=== PATIENT | male | born 1955 | race Caucasian/White ===

== ENCOUNTER 2018-04-02 17:02 | Inpatient (IN) | payer BC ==
[2018-04-02] MEDS ORDERED: Acetaminophen 500 MG Tab PO ONE (18:00)
[2018-04-02] MEDS ORDERED: Sodium Chloride 0.9% 1,000 ML IV ONE (18:00)
[2018-04-02] MEDS ORDERED: Sodium Chloride 0.9% 10 ML Syringe FLUSH PRN ×2 (18:00→20:57)
--- NOTE | 2018-04-02 18:00 | EDM.PDOC ---
ED HPI GENERAL MEDICAL PROBLEM - General Chief Complaint: Fever Stated Complaint: SHORTNESS OF BREATH Time Seen by Provider: 04/02/18 17:45 Source of Information: Reports: Patient, Family History Limitations: Reports: No Limitations - History of Present Illness INITIAL COMMENTS - FREE TEXT/NARRATIVE: Nicolas presents today for complaints of fever and SOB since this morning. He reports his fever was up to 101. He reports hemoptysis since this am. 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 Last took levaquin for 7 days which he started on March 17. History of hospitalization for sepsis. Lower Back Pain Score (Numeric/FACES): 7 - Related Data Allergies Allergy/AdvReac Type Severity Reaction Status Date / Time No Known Allergies Allergy Verified 04/02/18 17:08 Home Meds: Home Meds ALPRAZolam [Xanax] 3 - 5 tab PO ASDIRECTED PRN 04/02/18 [History] Bimatoprost [LUMIGAN 0.01% Ophth Soln] 1 drop EYEBOTH BEDTIME 04/02/18 [History] Citalopram [Citalopram HBr] 40 mg PO DAILY 04/02/18 [History] Fluticasone/Salmeterol [Advair 250-50 Diskus] 1 puff IN BID 04/02/18 [History] Furosemide [Lasix] 40 mg PO DAILY 04/02/18 [History] Tiotropium [Spiriva HandiHaler] 1 dose IN DAILY 04/02/18 [History] Warfarin Dosing [Coumadin Ask] 5 mg PO DAILY 04/02/18 [History] Zolpidem Tartrate [Ambien] 5 mg PO BEDTIME PRN 04/02/18 [History] amLODIPine [Norvasc] 5 mg PO DAILY 04/02/18 [History] amLODIPine [Norvasc] 5 mg PO DAILY 04/02/18 [History] oxyCODONE ER [OxyCONTIN] 20 mg PO Q8H 04/02/18 [History] Past Medical History Cardiovascular History: Reports: MT Respiratory History: Reports: COPD Musculoskeletal History: Reports: Back Pain, Chronic Social & Family History - Tobacco Use Smoking Status *Q: Never Smoker ED ROS GENERAL - Review of Systems Review Of Systems: See Below Constitutional: Reports: Fever, Chills, Malaise, Weakness HEENT: Reports: No Symptoms Respiratory: Reports: Shortness of Breath, Cough, Hemoptysis Cardiovascular: Reports: No Symptoms Endocrine: Reports: No Symptoms GI/Abdominal: Reports: No Symptoms : Reports: No Symptoms Musculoskeletal: Reports: No Symptoms Skin: Reports: Diaphoresis, Bruising Neurological: Reports: Weakness. Denies: Confusion, Dizziness, Headache, Numbness, Tingling Psychiatric: Reports: No Symptoms Hematologic/Lymphatic: Reports: No Symptoms Immunologic: Reports: No Symptoms ED EXAM, GENERAL - Physical Exam Exam: See Below Free Text/Narrative:: Nicolas is an alert and oriented 62 year old male presenting with fever and hemoptysis since this am. Exam Limited By: No Limitations General Appearance: Alert, WD/WN, Moderate Distress Eye Exam: Bilateral Eye: EOMI, Normal Inspection, PERRL Ears: Normal External Exam, Normal Canal, Hearing Grossly Normal, Normal TMs Ear Exam: Bilateral Ear: Auricle Normal, Canal Normal, TM normal Nose: Normal Inspection, Normal Mucosa, No Blood Throat/Mouth: Normal Inspection, Normal Lips, Normal Teeth, Normal Gums, Normal Oropharynx, Normal Voice, No Airway Compromise Head: Atraumatic, Normocephalic Neck: Normal Inspection, Supple, Non-Tender, Full Range of Motion. No: Lymphadenopathy (R), Lymphadenopathy (L) Respiratory/Chest: Respiratory Distress, Decreased Breath Sounds, Crackles Cardiovascular: Normal Peripheral Pulses, Regular Rate, Rhythm, No Edema, No Gallop, No Murmur Peripheral Pulses: 2+: Radial (L), Radial (R), Dorsalis Pedis (L), Dorsalis Pedis (R) GI/Abdominal: Normal Bowel Sounds, Soft, Non-Tender, No Organomegaly, No Distention, Other (Obese) Extremities: Normal Inspection, Normal Range of Motion, Non-Tender, No Pedal Edema, Normal Capillary Refill Neurological: Alert, Oriented, CN II-XII Intact, Normal Cognition, No Motor/ Sensory Deficits Psychiatric: Normal Affect, Normal Mood Skin Exam: Intact, Normal Color, No Rash, Increased Warmth, Other (Bruising to bialteral upper extremities) Lymphatic: No Adenopathy Course - Vital Signs Last Recorded V/S: Last Vital Signs Temp 37.9 C 04/02/18 21:44 Pulse 97 04/02/18 21:44 Resp 20 04/02/18 21:44 BP 111/51 L 04/02/18 21:44 Pulse Ox 95 04/02/18 21:44 - Orders/Labs/Meds Orders: Active Orders 24 hr Category Date Time Status Chest 1V Frontal [CR] Stat Exams 04/02/18 18:06 Taken CULTURE BLOOD [BC] Stat Lab 04/02/18 18:02 Received CULTURE URINE [RM] Stat Lab 04/02/18 19:56 Ordered UA W/MICROSCOPIC [URIN] Stat Lab 04/02/18 19:56 Ordered Piperacillin/Tazobactam [Zosyn] 3.375 gm Med 04/02/18 21:00 Active Sodium Chloride 0.9% [Normal Saline] 50 ml IV Q6H Blood Culture x2 Reflex Set [OM.PC] Urgent Oth 04/02/18 18:04 Ordered Blood Culture x2 Reflex Set [OM.PC] Urgent Oth 04/02/18 18:55 Ordered Medication Orders Acetaminophen (Tylenol) 650 mg PO Q4H PRN PRN Reason: Pain (Mild 1-3)/fever Albuterol (Proventil Neb Soln) 2.5 mg NEB Q4H PRN PRN Reason: Shortness Of Breath/wheezing Albuterol/Ipratropium (Duoneb 3.0-0.5 Mg/3 Ml) 3 ml NEB QID EDUARDO Amlodipine Besylate (Norvasc) 5 mg PO DAILY EDUARDO Citalopram Hydrobromide (Celexa) 40 mg PO DAILY EDUARDO Furosemide (Lasix) 40 mg PO DAILY EDUARDO Piperacillin Sod/Tazobactam (Sod 3.375 gm/ Sodium Chloride) 50 mls @ 100 mls/ hr IV Q6H EDUARDO Last Admin: 04/02/18 21:20 Dose: 100 mls/hr Azithromycin 500 mg/ Sodium (Chloride) 250 mls @ 250 mls/hr IV Q24H EDUARDO Aztreonam 1 gm/ Sodium (Chloride) 100 mls @ 200 mls/hr IV Q8HR EDUARDO Lactated Ringer's (Ringers, Lactated) 1,000 mls @ 500 mls/hr IV ASDIRECTED EDUARDO Stop: 04/03/18 00:58 Last Admin: 04/02/18 21:24 Dose: 500 mls/hr Lactated Ringer's (Ringers, Lactated) 1,000 mls @ 125 mls/hr IV ASDIRECTED EDUARDO Latanoprost (Xalatan 0.005% Ophth Soln) 0 ml EYEBOTH BEDTIME [facility] Last Admin: 04/02/18 22:08 Dose: 1 drop Lorazepam (Ativan) 1 mg IVPUSH Q4H PRN PRN Reason: Anxiety Last Admin: 04/02/18 21:22 Dose: 1 mg Magnesium Hydroxide (Milk Of Magnesia) 30 ml PO Q12H PRN PRN Reason: Constipation Methylprednisolone Sodium Succinate (Solu-Medrol) 40 mg IVPUSH Q6H [facility] Last Admin: 04/02/18 21:20 Dose: 40 mg Mometasone Furoate/Formoterol Fumar (Dulera 200-5 Mcg) 0 puff IH BID [facility] Last Admin: 04/02/18 21:37 Dose: 2 puff Ondansetron HCl (Zofran) 4 mg IV Q4H PRN PRN Reason: Nausea/Vomiting Oxycodone HCl (Oxycodone) 5 mg PO Q4H PRN PRN Reason: Pain (moderate 4-6) Oxycodone HCl (Oxycontin) 20 mg PO Q8H [facility] Last Admin: 04/02/18 21:21 Dose: 20 mg Polyethylene Glycol (Miralax) 17 gm PO DAILY PRN PRN Reason: Constipation Senna/Docusate Sodium (Senna Plus) 1 tab PO BID PRN PRN Reason: Constipation Sodium Chloride (Saline Flush) 10 ml FLUSH ASDIRECTED PRN PRN Reason: Keep Vein Open Tiotropium [place] (Spiriva Handihaler) 18 mcg INH DAILY [facility] Warfarin Sodium (Coumadin Sliding Scale) 1 each PO DAILY [facility] Zolpidem Tartrate (Ambien) 5 mg PO BEDTIME PRN PRN Reason: Insomnia Labs: Laboratory Tests 04/02/18 04/02/18 04/02/18 Range/Units 18:02 18:02 18:02 WBC 10.3 (4.5-11.0) K/uL RBC 4.62 (4.30-5.90) M/uL Hgb 14.4 (12.0-15.0) g/dL Hct 41.6 (40.0-54.0) % MCV 90 (80-98) fL MCH 31 (27-31) pg MCHC 35 (32-36) % Plt Count 201 (150-400) K/uL Neut % (Auto) 81 H (36-66) % Lymph % (Auto) 11 L (24-44) % [place] % (Auto) 6 (2-6) % Eos % (Auto) 1 L (2-4) % Baso % (Auto) 0 (0-1) % PT (9.5-12.0) sec INR (0.80-1.20) APTT (27.0-36.0) sec Puncture Site Lt brachial ABG pH 7.472 H (7.350-7.450) ABG pCO2 40.7 (35.0-42.0) mmHg ABG pO2 64.3 L (75.0-100.0) mmHg ABG HCO3 29.4 H (22.0-26.0) mmol/L ABG Total CO2 25.5 (23.0-27.0) mmol/L ABG O2 Saturation 94.0 L (95.0-98.0) % ABG O2 Content 18.1 (15.0-23.0) %vol ABG Base Excess 5.6 mm/L ABG Hemoglobin 14.0 (13.5-18.0) g/dL ABG Oxyhemoglobin 92.0 % ABG Carboxyhemoglobin 1.2 (0.0-1.6) % ABG Methemoglobin 0.9 % Veto Test Passed O2 Delivery Device Nasal cannula Oxygen Flow Rate 3 L Sodium 139 L (140-148) mmol/L Potassium 3.7 (3.6-5.2) mmol/L Chloride 101 (100-108) mmol/L Carbon Dioxide 31 (21-32) mmol/L Anion Gap 10.7 (5.0-14.0) mmol/L BUN 11 (7-18) mg/dL Creatinine 1.1 (0.8-1.3) mg/dL Est Cr Clr Drug Dosing 70.05 mL/min Estimated GFR (MDRD) > 60 (>60) Glucose 107 H (74-106) mg/dL Lactic Acid (0.4-2.0) mmol/L Calcium 8.1 L (8.5-10.1) mg/dL Total Bilirubin 1.3 H (0.2-1.0) mg/dL AST 78 H (15-37) U/L ALT 168 H (12-78) U/L Alkaline Phosphatase 97 (46-116) U/L C-Reactive Protein 0.47 H (0.0-0.3) mg/dL Total Protein 6.2 L (6.4-8.2) g/dL Albumin 3.0 L (3.4-5.0) g/dL Globulin 3.2 (2.3-3.5) g/dL Albumin/Globulin Ratio 0.9 L (1.2-2.2) Urine Color Urine Appearance Urine pH (4.5-8.0) Ur Specific [place] (1.008-1.030) Urine Protein (NEGATIVE) mg/dL Urine Glucose (UA) (NEGATIVE) mg/dL Urine Ketones (NEGATIVE) mg/dL Urine Occult Blood (NEGATIVE) Urine Nitrite (NEGAITVE) Urine Bilirubin (NEGATIVE) Urine Urobilinogen (NORMAL) mg/dL Ur Leukocyte Esterase (NEGATIVE) Urine RBC (0-5) Urine WBC (0-5) Ur Epithelial Cells Amorphous Sediment Urine Bacteria Urine Mucus 04/02/18 04/02/18 04/02/18 Range/Units 18:02 19:11 19:56 WBC (4.5-11.0) K/uL RBC (4.30-5.90) M/uL Hgb (12.0-15.0) g/dL Hct (40.0-54.0) % MCV (80-98) fL MCH (27-31) pg MCHC (32-36) % Plt Count (150-400) K/uL Neut % (Auto) (36-66) % Lymph % (Auto) (24-44) % [place] % (Auto) (2-6) % Eos % (Auto) (2-4) % Baso % (Auto) (0-1) % PT 15.4 H (9.5-12.0) sec INR 1.43 H (0.80-1.20) APTT 31.0 (27.0-36.0) sec Puncture Site ABG pH (7.350-7.450) ABG pCO2 (35.0-42.0) mmHg ABG pO2 (75.0-100.0) mmHg ABG HCO3 (22.0-26.0) mmol/L ABG Total CO2 (23.0-27.0) mmol/L ABG O2 Saturation (95.0-98.0) % ABG O2 Content (15.0-23.0) %vol ABG Base Excess mm/L ABG Hemoglobin (13.5-18.0) g/dL ABG Oxyhemoglobin % ABG Carboxyhemoglobin (0.0-1.6) % ABG Methemoglobin % Veto Test O2 Delivery Device Oxygen Flow Rate L Sodium (140-148) mmol/L Potassium (3.6-5.2) mmol/L Chloride (100-108) mmol/L Carbon Dioxide (21-32) mmol/L Anion Gap (5.0-14.0) mmol/L BUN (7-18) mg/dL Creatinine (0.8-1.3) mg/dL Est Cr Clr Drug Dosing mL/min Estimated GFR (MDRD) (>60) Glucose (74-106) mg/dL Lactic Acid 1.3 (0.4-2.0) mmol/L Calcium (8.5-10.1) mg/dL Total Bilirubin (0.2-1.0) mg/dL AST (15-37) U/L ALT (12-78) U/L Alkaline Phosphatase (46-116) U/L C-Reactive Protein (0.0-0.3) mg/dL Total Protein (6.4-8.2) g/dL Albumin (3.4-5.0) g/dL Globulin (2.3-3.5) g/dL Albumin/Globulin Ratio (1.2-2.2) Urine Color Yellow Urine Appearance Clear Urine pH 8.0 (4.5-8.0) Ur Specific [place] 1.015 (1.008-1.030) Urine Protein Negative (NEGATIVE) mg/dL Urine Glucose (UA) Normal (NEGATIVE) mg/dL Urine Ketones Negative (NEGATIVE) mg/dL Urine Occult Blood Negative (NEGATIVE) Urine Nitrite Negative (NEGAITVE) Urine Bilirubin Negative (NEGATIVE) Urine Urobilinogen Normal (NORMAL) mg/dL Ur Leukocyte Esterase Negative (NEGATIVE) Urine RBC 0-5 (0-5) Urine WBC 0-5 (0-5) Ur Epithelial Cells Few Amorphous Sediment Few Urine Bacteria Not seen Urine Mucus Few Meds: Medications Generic Name Dose Route Start Last Admin Trade Name Freq PRN Reason Stop Dose Admin Acetaminophen 650 mg 04/02/18 20:57 Tylenol PO Q4H PRN Pain (Mild 1-3)/fever Albuterol 2.5 mg 04/02/18 20:57 Proventil Neb Soln NEB Q4H PRN Shortness Of Breath/wheezing Albuterol/Ipratropium 3 ml 04/02/18 22:00 Duoneb 3.0-0.5 Mg/3 Ml NEB QID EDUARDO Amlodipine Besylate 5 mg 04/03/18 09:00 Norvasc PO DAILY EDUARDO Citalopram Hydrobromide 40 mg 04/03/18 09:00 Celexa PO DAILY EDUARDO Furosemide 40 mg 04/03/18 09:00 Lasix PO DAILY EDUARDO Piperacillin Sod/Tazobactam 50 mls @ 100 mls/hr 04/02/18 21:00 04/02/18 21:20 Sod 3.375 gm/ Sodium Chloride IV 100 mls/hr Q6H EDUARDO Administration Azithromycin 500 mg/ Sodium 250 mls @ 250 mls/hr 04/02/18 20:57 Chloride IV Q24H EDUARDO Aztreonam 1 gm/ Sodium 100 mls @ 200 mls/hr 04/02/18 22:00 Chloride IV Q8HR EDUARDO Lactated Ringer's 1,000 mls @ 500 mls/hr 04/02/18 20:57 04/02/18 21:24 Ringers, Lactated IV 04/03/18 00:58 500 mls/hr ASDIRECTED EDUARDO Administration Lactated Ringer's 1,000 mls @ 125 mls/hr 04/03/18 00:30 Ringers, Lactated IV ASDIRECTED EDUARDO Latanoprost 0 ml 04/02/18 21:45 04/02/18 22:08 Xalatan 0.005% Ophth Soln EYEBOTH 1 drop BEDTIME EDUARDO Administration Lorazepam 1 mg 04/02/18 20:57 04/02/18 21:22 Ativan IVPUSH 1 mg Q4H PRN Administration Anxiety Magnesium Hydroxide 30 ml 04/02/18 20:57 Milk Of Magnesia PO Q12H PRN Constipation Methylprednisolone Sodium Succinate 40 mg 04/02/18 20:57 04/02/18 21:20 Solu-Medrol IVPUSH 40 mg Q6H EDUARDO Administration Mometasone Furoate/Formoterol Fumar 0 puff 04/02/18 21:15 04/02/18 21:37 Dulera 200-5 Mcg IH 2 puff BID EDUARDO Administration Ondansetron HCl 4 mg 04/02/18 20:57 Zofran IV Q4H PRN Nausea/Vomiting Oxycodone HCl 5 mg 04/02/18 20:57 Oxycodone PO Q4H PRN Pain (moderate 4-6) Oxycodone HCl 20 mg 04/02/18 20:57 04/02/18 21:21 Oxycontin PO 20 mg Q8H EDUARDO Administration Polyethylene Glycol 17 gm 04/02/18 20:57 Miralax PO DAILY PRN Constipation Senna/Docusate Sodium 1 tab 04/02/18 20:57 Senna Plus PO BID PRN Constipation Sodium Chloride 10 ml 04/02/18 20:57 Saline Flush FLUSH ASDIRECTED PRN Keep Vein Open Tiotropium [place] 18 mcg 04/03/18 09:00 Spiriva Handihaler INH DAILY [facility] Warfarin Sodium 1 each 04/03/18 09:00 Coumadin Sliding Scale PO DAILY [facility] Zolpidem Tartrate 5 mg 04/02/18 20:57 Ambien PO BEDTIME PRN Insomnia Discontinued Medications Generic Name Dose Route Start Last Admin Trade Name Freq PRN Reason Stop Dose Admin Acetaminophen 1,000 mg 04/02/18 18:00 04/02/18 18:06 Tylenol Extra Strength PO 04/02/18 18:01 1,000 mg ONETIME ONE Administration Albuterol/Ipratropium 3 ml 04/02/18 18:06 04/02/18 18:15 Duoneb 3.0-0.5 Mg/3 Ml NEB 04/02/18 18:07 3 ml ONETIME ONE Administration Sodium Chloride 1,000 mls @ 500 mls/hr 04/02/18 18:00 04/02/18 18:07 Normal Saline IV 04/02/18 19:59 500 mls/hr .BOLUS ONE Administration Latanoprost 0 ml 04/02/18 21:00 Xalatan 0.005% Ophth Soln EYEBOTH BEDTIME EDUARDO Sodium Chloride 10 ml 04/02/18 18:00 04/02/18 18:07 Saline Flush FLUSH 10 ml ASDIRECTED PRN Administration Keep Vein Open Warfarin Sodium 5 mg 04/02/18 21:15 04/02/18 21:22 Coumadin PO 04/02/18 21:16 5 mg NOW ONE Administration - Radiology Interpretation Free Text/Narrative:: Chest x-ray reviewed, wet read, left lung infiltrate, Dr. Martin in agreement. Dr. Martin will be contacted for admission. - Re-Assessments/Exams Free Text/Narrative Re-Assessment/Exam: 04/02/18 19:11 Patient case discussed with Dr. Ngo, he is in agreement with patient admission. Patient and his family in agreement with plan. Departure - Departure Time of Disposition: 19:11 Disposition: Admitted As Inpatient 64 Condition: Fair Clinical Impression: Pneumonia - My Orders Last 24 Hours: My Active Orders 04/02/18 18:02 CULTURE BLOOD [BC] Stat 04/02/18 18:04 Blood Culture x2 Reflex Set [OM.PC] Urgent 04/02/18 18:06 Chest 1V Frontal [CR] Stat 04/02/18 18:55 Blood Culture x2 Reflex Set [OM.PC] Urgent 04/02/18 19:56 CULTURE URINE [RM] Stat UA W/MICROSCOPIC [URIN] Stat - Assessment/Plan Last 24 Hours: My Active Orders 04/02/18 18:02 CULTURE BLOOD [BC] Stat 04/02/18 18:04 Blood Culture x2 Reflex Set [OM.PC] Urgent 04/02/18 18:06 Chest 1V Frontal [CR] Stat 04/02/18 18:55 Blood Culture x2 Reflex Set [OM.PC] Urgent 04/02/18 19:56 CULTURE URINE [RM] Stat UA W/MICROSCOPIC [URIN] Stat
[2018-04-02] MEDS ORDERED: Albuterol/Ipratropium 3.0-0.5 MG/3 ML Neb Soln NEB ONE (18:06)
--- NOTE | 2018-04-02 20:36 | PCM.HP ---
H&P History of Present Illness - General Date of Service: 04/02/18 Admit Problem/Dx: Admission Diagnosis/Problem Admission Diagnosis/Problem Pneumonia Source of Information: Patient, Family, Provider, RN Notes Reviewed History Limitations: Reports: No Limitations - History of Present Illness Initial Comments - Free Text/Narative: Mr. Alvarado is a 62-year-old gentleman who was admitted through the emergency department with dyspnea and hemoptysis secondary to left lung pneumonia with early sepsis and hypoxia. He has a known history of COPD but does not use oxygen at home. He is had at least 2 exacerbations over the last 6 weeks requiring antibiotic therapy as well as oral prednisone. He completed a course of prednisone and antibiotic approximately one week ago. He was then feeling well until this morning when he progressively became more short of breath and developed a cough with blood-tinged sputum. He's had a previous history of pneumonia with sepsis as well as deep vein thrombosis and pulmonary emboli. He is on long-term oral anticoagulation with warfarin. Evaluation in the emergency department showed evidence of hypoxia on initial presentation that has reversed with supplemental oxygen. White blood cell count is within normal range and his lactic acid level was normal. Since she's been in the emergency department he has developed a resting sinus tachycardia, blood pressure has been stable. Chest x-ray shows evidence of a left lung infiltrate. - Related Data Allergies/Adverse Reactions: Allergies Allergy/AdvReac Type Severity Reaction Status Date / Time No Known Allergies Allergy Verified 04/02/18 17:08 Home Medications: Home Meds ALPRAZolam [Xanax] 3 - 5 tab PO ASDIRECTED PRN 04/02/18 [History] Bimatoprost [LUMIGAN 0.01% Ophth Soln] 1 drop EYEBOTH BEDTIME 04/02/18 [History] Citalopram [Citalopram HBr] 40 mg PO DAILY 04/02/18 [History] Fluticasone/Salmeterol [Advair 250-50 Diskus] 1 puff IN BID 04/02/18 [History] Furosemide [Lasix] 40 mg PO DAILY 04/02/18 [History] Tiotropium [Spiriva HandiHaler] 1 dose IN DAILY 04/02/18 [History] Warfarin Dosing [Coumadin Ask] 5 mg PO DAILY 04/02/18 [History] Zolpidem Tartrate [Ambien] 5 mg PO BEDTIME PRN 04/02/18 [History] amLODIPine [Norvasc] 5 mg PO DAILY 04/02/18 [History] amLODIPine [Norvasc] 5 mg PO DAILY 04/02/18 [History] oxyCODONE ER [OxyCONTIN] 20 mg PO Q8H 04/02/18 [History] Past Medical History Cardiovascular History: Reports: [place] Respiratory History: Reports: COPD Musculoskeletal History: Reports: Back Pain, Chronic Social & Family History - Tobacco Use Smoking Status *Q: Never Smoker H&P Review of Systems - Review of Systems: Review Of Systems: See Below General: Reports: Fever, Chills, Weakness, Diaphoresis HEENT: Reports: No Symptoms Pulmonary: Reports: Shortness of Breath, Wheezing, Cough, Sputum, Hemoptysis. Denies: Pleuritic Chest Pain Cardiovascular: Reports: Dyspnea on Exertion. Denies: Chest Pain, Palpitations , Orthopnea, PND, Edema, Lightheadedness Gastrointestinal: Reports: No Symptoms Genitourinary: Reports: No Symptoms Musculoskeletal: Reports: No Symptoms Skin: Reports: No Symptoms Psychiatric: Reports: No Symptoms Neurological: Reports: No Symptoms Hematologic/Lymphatic: Reports: No Symptoms Immunologic: Reports: No Symptoms Exam - Exam Exam: See Below - Vital Signs Vital Signs: Last Vital Signs Temp 102.1 F H 04/02/18 19:14 Pulse 104 H 04/02/18 19:14 Resp 16 04/02/18 19:14 BP 129/56 L 04/02/18 19:14 Pulse Ox 92 L 04/02/18 19:14 Weight: 305 lb - Exam Quality Assessment: Supplemental Oxygen, DVT Prophylaxis. No: Central Line/PICC , Urinary Catheter General: Alert, Oriented, Cooperative, Mild Distress HEENT: Conjunctiva Clear, Hearing Intact, Mucosa Moist & [place], Normal Nasal Septum, Posterior Pharynx Clear, Pupils Equal Neck: Supple, Trachea Midline, +2 Carotid Pulse wo Bruit Lungs: Decreased Breath Sounds, Rhonchi, Wheezing. No: Crackles, Rales Cardiovascular: Regular Rhythm, Normal S1, Normal S2, Tachycardia. No: Systolic Murmur, Diastolic Murmur GI/Abdominal Exam: Soft, Non-Tender, No Organomegaly, No Distention Back Exam: Normal Inspection, Full Range of Motion Extremities: Non-Tender, No Pedal Edema Skin: Warm, Dry, Intact Neurological: Cranial Nerves Intact, Strength Equal Bilateral, Normal Speech, Normal Tone, Sensation Intact. No: Focal Deficit Neuro Extensive - Mental Status: Alert, Oriented x3, Normal Mood/Affect, Normal Cognition, Memory Intact - Patient Data Lab Results Last 24 hrs: Laboratory Results - last 24 hr 04/02/18 04/02/18 04/02/18 Range/Units 18:02 18:02 18:02 WBC 10.3 (4.5-11.0) K/uL RBC 4.62 (4.30-5.90) M/uL Hgb 14.4 (12.0-15.0) g/dL Hct 41.6 (40.0-54.0) % MCV 90 (80-98) fL MCH 31 (27-31) pg MCHC 35 (32-36) % Plt Count 201 (150-400) K/uL Neut % (Auto) 81 H (36-66) % Lymph % (Auto) 11 L (24-44) % [place] % (Auto) 6 (2-6) % Eos % (Auto) 1 L (2-4) % Baso % (Auto) 0 (0-1) % PT (9.5-12.0) sec INR (0.80-1.20) APTT (27.0-36.0) sec Puncture Site Lt brachial ABG pH 7.472 H (7.350-7.450) ABG pCO2 40.7 (35.0-42.0) mmHg ABG pO2 64.3 L (75.0-100.0) mmHg ABG HCO3 29.4 H (22.0-26.0) mmol/L ABG Total CO2 25.5 (23.0-27.0) mmol/L ABG O2 Saturation 94.0 L (95.0-98.0) % ABG O2 Content 18.1 (15.0-23.0) %vol ABG Base Excess 5.6 mm/L ABG Hemoglobin 14.0 (13.5-18.0) g/dL ABG Oxyhemoglobin 92.0 % ABG Carboxyhemoglobin 1.2 (0.0-1.6) % ABG Methemoglobin 0.9 % Veto Test Passed O2 Delivery Device Nasal cannula Oxygen Flow Rate 3 L Sodium 139 L (140-148) mmol/L Potassium 3.7 (3.6-5.2) mmol/L Chloride 101 (100-108) mmol/L Carbon Dioxide 31 (21-32) mmol/L Anion Gap 10.7 (5.0-14.0) mmol/L BUN 11 (7-18) mg/dL Creatinine 1.1 (0.8-1.3) mg/dL Est Cr Clr Drug Dosing 70.05 mL/min Estimated GFR (MDRD) > 60 (>60) Glucose 107 H (74-106) mg/dL Lactic Acid (0.4-2.0) mmol/L Calcium 8.1 L (8.5-10.1) mg/dL Total Bilirubin 1.3 H (0.2-1.0) mg/dL AST 78 H (15-37) U/L ALT 168 H (12-78) U/L Alkaline Phosphatase 97 (46-116) U/L C-Reactive Protein 0.47 H (0.0-0.3) mg/dL Total Protein 6.2 L (6.4-8.2) g/dL Albumin 3.0 L (3.4-5.0) g/dL Globulin 3.2 (2.3-3.5) g/dL Albumin/Globulin Ratio 0.9 L (1.2-2.2) Urine Color Urine Appearance Urine pH (4.5-8.0) Ur Specific [place] (1.008-1.030) Urine Protein (NEGATIVE) mg/dL Urine Glucose (UA) (NEGATIVE) mg/dL Urine Ketones (NEGATIVE) mg/dL Urine Occult Blood (NEGATIVE) Urine Nitrite (NEGAITVE) Urine Bilirubin (NEGATIVE) Urine Urobilinogen (NORMAL) mg/dL Ur Leukocyte Esterase (NEGATIVE) Urine RBC (0-5) Urine WBC (0-5) Ur Epithelial Cells Amorphous Sediment Urine Bacteria Urine Mucus 04/02/18 04/02/18 04/02/18 Range/Units 18:02 19:11 19:56 WBC (4.5-11.0) K/uL RBC (4.30-5.90) M/uL Hgb (12.0-15.0) g/dL Hct (40.0-54.0) % MCV (80-98) fL MCH (27-31) pg MCHC (32-36) % Plt Count (150-400) K/uL Neut % (Auto) (36-66) % Lymph % (Auto) (24-44) % [place] % (Auto) (2-6) % Eos % (Auto) (2-4) % Baso % (Auto) (0-1) % PT 15.4 H (9.5-12.0) sec INR 1.43 H (0.80-1.20) APTT 31.0 (27.0-36.0) sec Puncture Site ABG pH (7.350-7.450) ABG pCO2 (35.0-42.0) mmHg ABG pO2 (75.0-100.0) mmHg ABG HCO3 (22.0-26.0) mmol/L ABG Total CO2 (23.0-27.0) mmol/L ABG O2 Saturation (95.0-98.0) % ABG O2 Content (15.0-23.0) %vol ABG Base Excess mm/L ABG Hemoglobin (13.5-18.0) g/dL ABG Oxyhemoglobin % ABG Carboxyhemoglobin (0.0-1.6) % ABG Methemoglobin % Veto Test O2 Delivery Device Oxygen Flow Rate L Sodium (140-148) mmol/L Potassium (3.6-5.2) mmol/L Chloride (100-108) mmol/L Carbon Dioxide (21-32) mmol/L Anion Gap (5.0-14.0) mmol/L BUN (7-18) mg/dL Creatinine (0.8-1.3) mg/dL Est Cr Clr Drug Dosing mL/min Estimated GFR (MDRD) (>60) Glucose (74-106) mg/dL Lactic Acid 1.3 (0.4-2.0) mmol/L Calcium (8.5-10.1) mg/dL Total Bilirubin (0.2-1.0) mg/dL AST (15-37) U/L ALT (12-78) U/L Alkaline Phosphatase (46-116) U/L C-Reactive Protein (0.0-0.3) mg/dL Total Protein (6.4-8.2) g/dL Albumin (3.4-5.0) g/dL Globulin (2.3-3.5) g/dL Albumin/Globulin Ratio (1.2-2.2) Urine Color Yellow Urine Appearance Clear Urine pH 8.0 (4.5-8.0) Ur Specific [place] 1.015 (1.008-1.030) Urine Protein Negative (NEGATIVE) mg/dL Urine Glucose (UA) Normal (NEGATIVE) mg/dL Urine Ketones Negative (NEGATIVE) mg/dL Urine Occult Blood Negative (NEGATIVE) Urine Nitrite Negative (NEGAITVE) Urine Bilirubin Negative (NEGATIVE) Urine Urobilinogen Normal (NORMAL) mg/dL Ur Leukocyte Esterase Negative (NEGATIVE) Urine RBC 0-5 (0-5) Urine WBC 0-5 (0-5) Ur Epithelial Cells Few Amorphous Sediment Few Urine Bacteria Not seen Urine Mucus Few Result Diagrams: 04/02/18 18:02 04/02/18 18:02 *Q Meaningful Use (ADM) - VTE Risk Assess *Q Each Risk Factor Represents 1 Point: Obesity ( BMI > 25 kg/m2), Serious lung disease including pneumonia, Abnormal Pulmonary Function (COPD) Total Score 1 Point Risk Factors: 3 Each Risk Factor Represents 2 Points: Age 60 - 74 Years Total Score 2 Point Risk Factors: 2 Each Risk Factor Represents 3 Points: History of DVT/PE Total Score 3 Point Risk Factors: 3 Each Risk Factor Represents 5 Points: None Total Score 5 Point Risk Factors: 0 Venous Thromboembolism Risk Factor Score *Q: 8 Problem List Initiated/Reviewed/Updated: Yes Orders Last 24hrs: Active Orders 24 hr Category Date Time Status Patient Status Manage Transfer [TRANSFER] Routine ADT 04/02/18 20:19 Ordered RT Aerosol Therapy [RC] ASDIRECTED Care 04/02/18 18:06 Active Vital Signs [RC] Q1H Care 04/02/18 18:55 Active Chest 1V Frontal [CR] Stat Exams 04/02/18 18:06 Taken CULTURE BLOOD [BC] Stat Lab 04/02/18 18:02 Received CULTURE URINE [RM] Stat Lab 04/02/18 19:56 Ordered UA W/MICROSCOPIC [URIN] Stat Lab 04/02/18 19:56 Ordered Piperacillin/Tazobactam [Zosyn] 3.375 gm Med 04/02/18 21:00 Ordered Sodium Chloride 0.9% [Normal Saline] 50 ml IV Q6H Sodium Chloride 0.9% [Saline Flush] Med 04/02/18 18:00 Active 10 ml FLUSH ASDIRECTED PRN Blood Culture x2 Reflex Set [OM.PC] Urgent Oth 04/02/18 18:04 Ordered Blood Culture x2 Reflex Set [OM.PC] Urgent Oth 04/02/18 18:55 Ordered Saline Lock Insert [OM.PC] Routine Oth 04/02/18 18:00 Ordered Resuscitation Status Routine Resus Stat 04/02/18 20:23 Ordered Medication Orders Piperacillin Sod/Tazobactam (Sod 3.375 gm/ Sodium Chloride) 50 mls @ 100 mls/ hr IV Q6H EDUARDO Sodium Chloride (Saline Flush) 10 ml FLUSH ASDIRECTED PRN PRN Reason: Keep Vein Open Last Admin: 04/02/18 18:07 Dose: 10 ml Assessment/Plan Comment:: ASSESSMENT AND PLAN LEFT LUNG PNEUMONIA WITH EARLY SEPSIS-recent history of COPD exacerbations requiring oral antibiotic therapy and prednisone. He had felt relatively well over the past week until this morning when he developed progressive shortness of breath, fever, and hemoptysis. Evaluation the emergency department has documented hypoxia and left lung infiltrate on chest x-ray. Lactic acid level is within normal range but he has developed a resting sinus tachycardia while in the emergency department. -Blood and sputum cultures pending -Broad-spectrum IV antibiotic therapy because of recent history of oral antibiotics and prednisone; Zosyn, Azactam, and azithromycin, pending culture results -Vigorous IV fluid infusion per sepsis protocol HYPOXIA-acute, he does not use oxygen at baseline. Secondary to pneumonia with COPD exacerbation -Supplemental oxygen as needed -Continuous pulse oximetry COPD EXACERBATION-secondary to pneumonia -Nebulized albuterol and duo nebs -Continue outpatient medications including Spiriva and Advair -Solu-Medrol 40 mg IV every 6 hours MAINTENANCE ISSUES -DVT prophylaxis; current therapy with warfarin should provide adequate DVT prophylaxis, because of high risk will also use SCUDs -GI prophylaxis; not indicated -Yeh catheter; not indicated -Nutrition; regular diet -Nicotine dependence; not required CODE STATUS-FULL CODE ADMISSION STATUS-patient will be admitted to inpatient status, expect at least a 2 night hospital stay for evaluation and management of problems as outlined above. At the time of this admission I do not reasonably expected evaluation and management of this problem will require more than a 96 hour hospital stay. DISPOSITION-anticipate discharge to home after the hospital stay. PRIMARY CARE PROVIDER-patient is from the [facility] and receives his medical care there
[2018-04-02] MEDS ORDERED: Polyethylene Glycol 3350 Powder 17 GM Packet PO PRN (20:57)
[2018-04-02] MEDS ORDERED: Ondansetron 4 MG/2 ML SDV IV PRN (20:57)
[2018-04-02] MEDS ORDERED: Azithromycin 500 MG in Sodium Chloride 0.9% 250 ML IV SCH (20:57)
[2018-04-02] MEDS ORDERED: Acetaminophen 325 MG Tab PO PRN (20:57)
[2018-04-02] MEDS ORDERED: Magnesium Hydroxide 400 MG/5 ML Susp 30 ML Cup PO PRN (20:57)
[2018-04-02] MEDS ORDERED: Albuterol 0.083% 2.5 MG/3 ML Neb Soln NEB PRN (20:57)
[2018-04-02] MEDS ORDERED: Lactated Ringers 1,000 ML IV SCH (20:57)
[2018-04-02] MEDS ORDERED: Latanoprost 0.005% Ophth Soln 2.5 ML Bottle EYEBOTH SCH ×2 (21:00→21:45)
[2018-04-02] MEDS ORDERED: Formoterol/Mometasone 200-5 MCG 8.8 GM Inhaler IH SCH (21:15)
[2018-04-02] MEDS ORDERED: Warfarin 5 MG Tab PO ONE (21:15)
[2018-04-02] MEDS: methylPREDNISolone Sodium Succinate 40 MG/1 ML SDV IVPUSH SCH (21:20)
[2018-04-02] MEDS: Piperacillin/Tazobactam 3.375 GM in Sodium Chloride 0.9% 50 ML IV SCH (21:20)
[2018-04-02] MEDS: oxyCODONE ER 20 MG TAB.ER PO SCH (21:21)
[2018-04-02] MEDS: LORazepam 2 MG/ML SDV IVPUSH PRN (21:22)
[2018-04-02] MEDS ORDERED: Aztreonam 1 GM in Sodium Chloride 0.9% 100 ML IV SCH (22:00)
[2018-04-02] MEDS: Albuterol/Ipratropium 3.0-0.5 MG/3 ML Neb Soln NEB SCH (22:25)
[2018-04-02] MEDS: Aztreonam 1 GM in Sodium Chloride 0.9% 100 ML IV SCH (23:50)
[2018-04-03] MEDS ORDERED: Lactated Ringers 1,000 ML IV SCH (00:30)
[2018-04-03] MEDS: methylPREDNISolone Sodium Succinate 40 MG/1 ML SDV IVPUSH SCH ×2 (03:30→21:10)
[2018-04-03] MEDS: Piperacillin/Tazobactam 3.375 GM in Sodium Chloride 0.9% 50 ML IV SCH (03:30)
[2018-04-03] MEDS: Aztreonam 1 GM in Sodium Chloride 0.9% 100 ML IV SCH (05:53)
[2018-04-03] MEDS: oxyCODONE ER 20 MG TAB.ER PO SCH ×3 (05:56→22:11)
[2018-04-03] MEDS: Albuterol/Ipratropium 3.0-0.5 MG/3 ML Neb Soln NEB SCH ×5 (07:44→21:09)
[2018-04-03] MEDS: Formoterol/Mometasone 200-5 MCG 8.8 GM Inhaler IH SCH ×2 (07:45→21:08)
[2018-04-03] MEDS: Tiotropium Inhaler 18 MCG Inhalation Powder Cap Kit of 5 INH SCH (08:09)
[2018-04-03] MEDS: Furosemide 40 MG Tab PO SCH (08:15)
[2018-04-03] MEDS ORDERED: oxyCODONE ER 20 MG TAB.ER PO ONE (08:15)
[2018-04-03] MEDS: Citalopram 20 MG Tab PO SCH (08:16)
[2018-04-03] MEDS: amLODIPine 5 MG Tab PO SCH (08:17)
[2018-04-03] MEDS: Piperacillin/Tazobactam/Dext 3.375 GM in Premix Bag 1 BAG IV SCH ×3 (08:29→20:49)
[2018-04-03] MEDS ORDERED: Warfarin Sliding Scale PO SCH (09:00)
[2018-04-03] MEDS ORDERED: Tiotropium Inhaler 18 MCG Inhalation Powder Cap Kit of 5 INH SCH (09:00)
[2018-04-03] MEDS ORDERED: Enoxaparin 40 MG/0.4 ML Syringe SUBCUT SCH (09:15)
[2018-04-03] MEDS ORDERED: Warfarin 2.5 MG Tab PO ONE (10:00)
[2018-04-03] MEDS ORDERED: methylPREDNISolone Sodium Succinate 40 MG/1 ML SDV IVPUSH SCH (10:00)
[2018-04-03] MEDS: LORazepam 2 MG/ML SDV IVPUSH PRN ×3 (10:57→20:57)
--- NOTE | 2018-04-03 12:02 | PCM.PN ---
- General Info Date of Service: 04/03/18 Subjective Update: Mr. Alvarado has improved since admission with less shortness of breath, sputum is yellow in color this morning with no further hemoptysis. White blood cell count is now elevated, temperature is been under good control. All further evidence of active sepsis, tachycardia has resolved. Functional Status: Reports: Tolerating Diet, Ambulating, Urinating - Review of Systems General: Reports: Weakness. Denies: Fever, Chills Pulmonary: Reports: Shortness of Breath, Cough, Sputum. Denies: Hemoptysis, Wheezing Cardiovascular: Reports: Dyspnea on Exertion. Denies: Chest Pain, Palpitations , Orthopnea, PND, Edema, Lightheadedness Gastrointestinal: Reports: No Symptoms - Patient Data Vitals - Most Recent: Last Vital Signs Temp 97.8 F 04/03/18 10:00 Pulse 74 04/03/18 11:16 Resp 18 04/03/18 10:00 BP 135/48 L 04/03/18 10:00 Pulse Ox 97 04/03/18 11:16 Weight - Most Recent: 310 lb I&O - Last 24 Hours: Intake & Output 04/02/18 04/03/18 04/03/18 22:59 06:59 14:59 Intake Total 200 2557 Output Total 750 800 500 Balance -550 1757 -500 Lab Results Last 24 Hours: Laboratory Results - last 24 hr 04/02/18 04/02/18 04/02/18 Range/Units 18:02 18:02 18:02 WBC 10.3 (4.5-11.0) K/uL RBC 4.62 (4.30-5.90) M/uL Hgb 14.4 (12.0-15.0) g/dL Hct 41.6 (40.0-54.0) % MCV 90 (80-98) fL MCH 31 (27-31) pg MCHC 35 (32-36) % Plt Count 201 (150-400) K/uL Neut % (Auto) 81 H (36-66) % Lymph % (Auto) 11 L (24-44) % Traill % (Auto) 6 (2-6) % Eos % (Auto) 1 L (2-4) % Baso % (Auto) 0 (0-1) % PT (9.5-12.0) sec INR (0.80-1.20) APTT (27.0-36.0) sec Puncture Site Lt brachial ABG pH 7.472 H (7.350-7.450) ABG pCO2 40.7 (35.0-42.0) mmHg ABG pO2 64.3 L (75.0-100.0) mmHg ABG HCO3 29.4 H (22.0-26.0) mmol/L ABG Total CO2 25.5 (23.0-27.0) mmol/L ABG O2 Saturation 94.0 L (95.0-98.0) % ABG O2 Content 18.1 (15.0-23.0) %vol ABG Base Excess 5.6 mm/L ABG Hemoglobin 14.0 (13.5-18.0) g/dL ABG Oxyhemoglobin 92.0 % ABG Carboxyhemoglobin 1.2 (0.0-1.6) % ABG Methemoglobin 0.9 % Veto Test Passed O2 Delivery Device Nasal cannula Oxygen Flow Rate 3 L Sodium 139 L (140-148) mmol/L Potassium 3.7 (3.6-5.2) mmol/L Chloride 101 (100-108) mmol/L Carbon Dioxide 31 (21-32) mmol/L Anion Gap 10.7 (5.0-14.0) mmol/L BUN 11 (7-18) mg/dL Creatinine 1.1 (0.8-1.3) mg/dL Est Cr Clr Drug Dosing 70.05 mL/min Estimated GFR (MDRD) > 60 (>60) Glucose 107 H (74-106) mg/dL Lactic Acid (0.4-2.0) mmol/L Calcium 8.1 L (8.5-10.1) mg/dL Magnesium (1.8-2.4) mg/dL Total Bilirubin 1.3 H (0.2-1.0) mg/dL AST 78 H (15-37) U/L ALT 168 H (12-78) U/L Alkaline Phosphatase 97 (46-116) U/L C-Reactive Protein 0.47 H (0.0-0.3) mg/dL Total Protein 6.2 L (6.4-8.2) g/dL Albumin 3.0 L (3.4-5.0) g/dL Globulin 3.2 (2.3-3.5) g/dL Albumin/Globulin Ratio 0.9 L (1.2-2.2) Urine Color Urine Appearance Urine pH (4.5-8.0) Ur Specific Guffey (1.008-1.030) Urine Protein (NEGATIVE) mg/dL Urine Glucose (UA) (NEGATIVE) mg/dL Urine Ketones (NEGATIVE) mg/dL Urine Occult Blood (NEGATIVE) Urine Nitrite (NEGAITVE) Urine Bilirubin (NEGATIVE) Urine Urobilinogen (NORMAL) mg/dL Ur Leukocyte Esterase (NEGATIVE) Urine RBC (0-5) Urine WBC (0-5) Ur Epithelial Cells Amorphous Sediment Urine Bacteria Urine Mucus 04/02/18 04/02/18 04/02/18 Range/Units 18:02 19:11 19:56 WBC (4.5-11.0) K/uL RBC (4.30-5.90) M/uL Hgb (12.0-15.0) g/dL Hct (40.0-54.0) % MCV (80-98) fL MCH (27-31) pg MCHC (32-36) % Plt Count (150-400) K/uL Neut % (Auto) (36-66) % Lymph % (Auto) (24-44) % Traill % (Auto) (2-6) % Eos % (Auto) (2-4) % Baso % (Auto) (0-1) % PT 15.4 H (9.5-12.0) sec INR 1.43 H (0.80-1.20) APTT 31.0 (27.0-36.0) sec Puncture Site ABG pH (7.350-7.450) ABG pCO2 (35.0-42.0) mmHg ABG pO2 (75.0-100.0) mmHg ABG HCO3 (22.0-26.0) mmol/L ABG Total CO2 (23.0-27.0) mmol/L ABG O2 Saturation (95.0-98.0) % ABG O2 Content (15.0-23.0) %vol ABG Base Excess mm/L ABG Hemoglobin (13.5-18.0) g/dL ABG Oxyhemoglobin % ABG Carboxyhemoglobin (0.0-1.6) % ABG Methemoglobin % Veto Test O2 Delivery Device Oxygen Flow Rate L Sodium (140-148) mmol/L Potassium (3.6-5.2) mmol/L Chloride (100-108) mmol/L Carbon Dioxide (21-32) mmol/L Anion Gap (5.0-14.0) mmol/L BUN (7-18) mg/dL Creatinine (0.8-1.3) mg/dL Est Cr Clr Drug Dosing mL/min Estimated GFR (MDRD) (>60) Glucose (74-106) mg/dL Lactic Acid 1.3 (0.4-2.0) mmol/L Calcium (8.5-10.1) mg/dL Magnesium (1.8-2.4) mg/dL Total Bilirubin (0.2-1.0) mg/dL AST (15-37) U/L ALT (12-78) U/L Alkaline Phosphatase (46-116) U/L C-Reactive Protein (0.0-0.3) mg/dL Total Protein (6.4-8.2) g/dL Albumin (3.4-5.0) g/dL Globulin (2.3-3.5) g/dL Albumin/Globulin Ratio (1.2-2.2) Urine Color Yellow Urine Appearance Clear Urine pH 8.0 (4.5-8.0) Ur Specific Guffey 1.015 (1.008-1.030) Urine Protein Negative (NEGATIVE) mg/dL Urine Glucose (UA) Normal (NEGATIVE) mg/dL Urine Ketones Negative (NEGATIVE) mg/dL Urine Occult Blood Negative (NEGATIVE) Urine Nitrite Negative (NEGAITVE) Urine Bilirubin Negative (NEGATIVE) Urine Urobilinogen Normal (NORMAL) mg/dL Ur Leukocyte Esterase Negative (NEGATIVE) Urine RBC 0-5 (0-5) Urine WBC 0-5 (0-5) Ur Epithelial Cells Few Amorphous Sediment Few Urine Bacteria Not seen Urine Mucus Few 04/03/18 04/03/18 04/03/18 Range/Units 04:38 04:38 04:38 WBC 18.6 H (4.5-11.0) K/uL RBC 4.30 (4.30-5.90) M/uL Hgb 13.5 (12.0-15.0) g/dL Hct 38.9 L (40.0-54.0) % MCV 91 (80-98) fL MCH 31 (27-31) pg MCHC 35 (32-36) % Plt Count 176 (150-400) K/uL Neut % (Auto) 94 H (36-66) % Lymph % (Auto) 4 L (24-44) % Traill % (Auto) 2 (2-6) % Eos % (Auto) 0 L (2-4) % Baso % (Auto) 0 (0-1) % PT 16.5 H (9.5-12.0) sec INR 1.54 H (0.80-1.20) APTT (27.0-36.0) sec Puncture Site ABG pH (7.350-7.450) ABG pCO2 (35.0-42.0) mmHg ABG pO2 (75.0-100.0) mmHg ABG HCO3 (22.0-26.0) mmol/L ABG Total CO2 (23.0-27.0) mmol/L ABG O2 Saturation (95.0-98.0) % ABG O2 Content (15.0-23.0) %vol ABG Base Excess mm/L ABG Hemoglobin (13.5-18.0) g/dL ABG Oxyhemoglobin % ABG Carboxyhemoglobin (0.0-1.6) % ABG Methemoglobin % Veto Test O2 Delivery Device Oxygen Flow Rate L Sodium 137 L (140-148) mmol/L Potassium 3.9 (3.6-5.2) mmol/L Chloride 102 (100-108) mmol/L Carbon Dioxide 27 (21-32) mmol/L Anion Gap 11.9 (5.0-14.0) mmol/L BUN 13 (7-18) mg/dL Creatinine 1.2 (0.8-1.3) mg/dL Est Cr Clr Drug Dosing 64.21 mL/min Estimated GFR (MDRD) > 60 (>60) Glucose 213 H (74-106) mg/dL Lactic Acid (0.4-2.0) mmol/L Calcium 8.1 L (8.5-10.1) mg/dL Magnesium 1.8 (1.8-2.4) mg/dL Total Bilirubin 1.5 H (0.2-1.0) mg/dL AST 61 H (15-37) U/L ALT 145 H (12-78) U/L Alkaline Phosphatase 78 (46-116) U/L C-Reactive Protein (0.0-0.3) mg/dL Total Protein 6.0 L (6.4-8.2) g/dL Albumin 2.6 L (3.4-5.0) g/dL Globulin 3.4 (2.3-3.5) g/dL Albumin/Globulin Ratio 0.8 L (1.2-2.2) Urine Color Urine Appearance Urine pH (4.5-8.0) Ur Specific Guffey (1.008-1.030) Urine Protein (NEGATIVE) mg/dL Urine Glucose (UA) (NEGATIVE) mg/dL Urine Ketones (NEGATIVE) mg/dL Urine Occult Blood (NEGATIVE) Urine Nitrite (NEGAITVE) Urine Bilirubin (NEGATIVE) Urine Urobilinogen (NORMAL) mg/dL Ur Leukocyte Esterase (NEGATIVE) Urine RBC (0-5) Urine WBC (0-5) Ur Epithelial Cells Amorphous Sediment Urine Bacteria Urine Mucus [place] Results Last 24 Hours: Microbiology 04/03/18 02:21 Gram Stain - Final Sputum - Expectorated Med Orders - Current: Current Medications Acetaminophen (Tylenol) 650 mg PO Q4H PRN PRN Reason: Pain (Mild 1-3)/fever Albuterol (Proventil Neb Soln) 2.5 mg NEB Q4H PRN PRN Reason: Shortness Of Breath/wheezing Albuterol/Ipratropium (Duoneb 3.0-0.5 Mg/3 Ml) 3 ml NEB QIDRT [facility] Last Admin: 04/03/18 11:16 Dose: 3 ml Amlodipine Besylate (Norvasc) 5 mg PO DAILY [facility] Last Admin: 04/03/18 08:17 Dose: 5 mg Citalopram Hydrobromide (Celexa) 40 mg PO DAILY [facility] Last Admin: 04/03/18 08:16 Dose: 40 mg Enoxaparin Sodium (Lovenox) 40 mg SUBCUT DAILY [facility] Last Admin: 04/03/18 10:34 Dose: 40 mg Furosemide (Lasix) 40 mg PO DAILY [facility] Last Admin: 04/03/18 08:15 Dose: 40 mg Azithromycin 500 mg/ Sodium (Chloride) 250 mls @ 250 mls/hr IV Q24H [facility] Aztreonam/Dextrose 1 gm/ (Premix) 50 mls @ 100 mls/hr IV Q8HR [facility] Piperacillin/Tazobactam/ (Dextrose 3.375 gm/ Premix) 50 mls @ 100 mls/hr IV Q6H [facility] Last Admin: 04/03/18 08:29 Dose: 100 mls/hr Latanoprost (Xalatan 0.005% Ophth Soln) 0 ml EYEBOTH BEDTIME [facility] Lorazepam (Ativan) 1 mg IVPUSH Q4H PRN PRN Reason: Anxiety Last Admin: 04/03/18 10:57 Dose: 1 mg Magnesium Hydroxide (Milk Of Magnesia) 30 ml PO Q12H PRN PRN Reason: Constipation Methylprednisolone Sodium Succinate (Solu-Medrol) 40 mg IVPUSH Q12H [facility] Mometasone Furoate/Formoterol Fumar (Dulera 200-5 Mcg) 2 puff IH BIDRT [facility] Last Admin: 04/03/18 07:45 Dose: 2 puff Ondansetron HCl (Zofran) 4 mg IV Q4H PRN PRN Reason: Nausea/Vomiting Oxycodone HCl (Oxycodone) 5 mg PO Q4H PRN PRN Reason: Pain (moderate 4-6) Oxycodone HCl (Oxycontin) 20 mg PO Q8H [facility] Polyethylene Glycol (Miralax) 17 gm PO DAILY PRN PRN Reason: Constipation Senna/Docusate Sodium (Senna Plus) 1 tab PO BID PRN PRN Reason: Constipation Sodium Chloride (Saline Flush) 10 ml FLUSH ASDIRECTED PRN PRN Reason: Keep Vein Open Tiotropium Steward[place] (Spiriva Handihaler) 18 mcg INH DAILY@0700 [facility] Last Admin: 04/03/18 08:09 Dose: 18 mcg Zolpidem Tartrate (Ambien) 5 mg PO BEDTIME PRN PRN Reason: Insomnia Discontinued Medications Acetaminophen (Tylenol Extra Strength) 1,000 mg PO ONETIME ONE Stop: 04/02/18 18:01 Last Admin: 04/02/18 18:06 Dose: 1,000 mg Albuterol/Ipratropium (Duoneb 3.0-0.5 Mg/3 Ml) 3 ml NEB ONETIME ONE Stop: 04/02/18 18:07 Last Admin: 04/02/18 18:15 Dose: 3 ml Albuterol/Ipratropium (Duoneb 3.0-0.5 Mg/3 Ml) 3 ml NEB QID EDUARDO Last Admin: 04/03/18 08:20 Dose: Not Given Sodium Chloride (Normal Saline) 1,000 mls @ 500 mls/hr IV .BOLUS ONE Stop: 04/02/18 19:59 Last Admin: 04/02/18 18:07 Dose: 500 mls/hr Piperacillin Sod/Tazobactam (Sod 3.375 gm/ Sodium Chloride) 50 mls @ 100 mls/ hr IV Q6H EDUARDO Last Admin: 04/03/18 03:30 Dose: 100 mls/hr Azithromycin 500 mg/ Sodium (Chloride) 250 mls @ 250 mls/hr IV Q24H EDUARDO Last Admin: 04/02/18 22:28 Dose: 250 mls/hr Aztreonam 1 gm/ Sodium (Chloride) 100 mls @ 200 mls/hr IV Q8HR EDUARDO Last Admin: 04/02/18 23:41 Dose: Not Given Lactated Ringer's (Ringers, Lactated) 1,000 mls @ 500 mls/hr IV ASDIRECTED EDUARDO Stop: 04/03/18 00:58 Last Admin: 04/02/18 21:24 Dose: 500 mls/hr Lactated Ringer's (Ringers, Lactated) 1,000 mls @ 125 mls/hr IV ASDIRECTED [facility] Last Admin: 04/03/18 01:35 Dose: 125 mls/hr Aztreonam 1 gm/ Sodium (Chloride) 100 mls @ 200 mls/hr IV Q8HR EDUARDO Last Admin: 04/03/18 05:53 Dose: 200 mls/hr Latanoprost (Xalatan 0.005% Ophth Soln) 0 ml EYEBOTH BEDTIME EDUARDO Last Admin: 04/02/18 23:08 Dose: Not Given Latanoprost (Xalatan 0.005% Ophth Soln) 0 ml EYEBOTH BEDTIME [facility] Last Admin: 04/02/18 22:08 Dose: 1 drop Methylprednisolone Sodium Succinate (Solu-Medrol) 40 mg IVPUSH Q6H EDUARDO Last Admin: 04/03/18 03:30 Dose: 40 mg Methylprednisolone Sodium Succinate (Solu-Medrol) 40 mg IVPUSH Q6H [facility] Last Admin: 04/03/18 10:34 Dose: 40 mg Mometasone Furoate/Formoterol Fumar (Dulera 200-5 Mcg) 0 puff IH BID [facility] Last Admin: 04/02/18 21:37 Dose: 2 puff Oxycodone HCl (Oxycontin) 20 mg PO Q8H [facility] Last Admin: 04/03/18 05:56 Dose: Not Given Oxycodone HCl (Oxycontin) 20 mg PO ONETIME ONE Stop: 04/03/18 08:16 Last Admin: 04/03/18 08:15 Dose: 20 mg Sodium Chloride (Saline Flush) 10 ml FLUSH ASDIRECTED PRN PRN Reason: Keep Vein Open Last Admin: 04/02/18 18:07 Dose: 10 ml Warfarin Sodium (Coumadin Sliding Scale) 1 each PO DAILY [facility] Warfarin Sodium (Coumadin) 5 mg PO NOW ONE Stop: 04/02/18 21:16 Last Admin: 04/02/18 21:22 Dose: 5 mg Warfarin Sodium (Coumadin) 7.5 mg PO ONETIME ONE Stop: 04/03/18 10:01 Last Admin: 04/03/18 10:33 Dose: 7.5 mg - Exam Quality Assessment: Supplemental Oxygen, DVT Prophylaxis General: Alert, Oriented, Cooperative, No Acute Distress Lungs: Clear to Auscultation, Normal Respiratory Effort Cardiovascular: Regular Rate, Regular Rhythm, No Murmurs GI/Abdominal Exam: Soft, Non-Tender, No Organomegaly, No Distention Extremities: Non-Tender, No Pedal Edema Skin: Warm, Dry - Problem List Review Problem List Initiated/Reviewed/Updated: Yes - My Orders Last 24 Hours: My Active Orders 04/02/18 20:23 Resuscitation Status Routine 04/02/18 20:57 Patient Status [ADT] Routine Ambulate [RC] QID Cardiac Monitoring [RC] .As Directed Height and Weight [RC] DAILY Intake and Output [RC] QSHIFT Notify Provider Vital Signs [RC] ASDIRECTED Oxygen Therapy [RC] PRN Peripheral IV Care [RC] Q12H Pulse Oximetry [RC] CONTINUOUS RT Aerosol Therapy [RC] ASDIRECTED Up With Assistance [RC] ASDIRECTED Up to Chair [RC] QID VTE/DVT Education [RC] Per Unit Routine Vital Signs [RC] Q4H Acetaminophen [Tylenol] 650 mg PO Q4H PRN Albuterol [Proventil Neb Soln] 2.5 mg NEB Q4H PRN Docusate Sodium/Sennosides [Senna Plus] 1 tab PO BID PRN LORazepam [Ativan] 1 mg IVPUSH Q4H PRN Magnesium Hydroxide [Milk of Magnesia] 30 ml PO Q12H PRN Ondansetron [Zofran] 4 mg IV Q4H PRN Polyethylene Glycol 3350 [MiraLAX] 17 gm PO DAILY PRN Sodium Chloride 0.9% [Saline Flush] 10 ml FLUSH ASDIRECTED PRN Zolpidem [Ambien] 5 mg PO BEDTIME PRN oxyCODONE 5 mg PO Q4H PRN Peripheral IV Insertion Adult [OM.PC] Routine Sequential Compression Device [OM.PC] Per Unit Routine VTE Pharmacological Contraindications [AST] Per Unit Routine 04/02/18 Dinner Regular Diet [DIET] 04/03/18 02:21 CULTURE RESPIRATORY + SMEAR [RM] Stat 04/03/18 07:00 Albuterol/Ipratropium [DuoNeb 3.0-0.5 MG/3 ML] 3 ml NEB QIDRT Mometasone/Formoterol [Dulera 200-5 MCG] 2 puff IH BIDRT Tiotropium [Spiriva HandiHaler] 18 mcg INH DAILY@0700 04/03/18 09:00 Citalopram [Celexa] 40 mg PO DAILY Furosemide [Lasix] 40 mg PO DAILY Piperacillin/Tazobactam/Dext [Zosyn in Dextrose Iso-Osmotic 3.375 GM] 3.375 gm Premix Bag 1 bag IV Q6H amLODIPine [Norvasc] 5 mg PO DAILY 04/03/18 09:15 Enoxaparin [Lovenox] 40 mg SUBCUT DAILY 04/03/18 11:24 Convert IV to Saline Lock [OM.PC] Routine 04/03/18 12:00 methylPREDNISolone Sod Succ [Solu-MEDROL] 40 mg IVPUSH Q12H 04/03/18 14:00 Aztreonam/Dextrose-Water [Azactam in Dextrose,Iso-Osmotic 1 GM/50 ML] 1 gm Premix Bag 1 bag IV Q8HR oxyCODONE ER [OxyCONTIN] 20 mg PO Q8H 04/03/18 21:00 Latanoprost [Xalatan 0.005% Ophth Soln] 0 ml EYEBOTH BEDTIME 04/03/18 21:30 Azithromycin [Zithromax] 500 mg Sodium Chloride 0.9% [Normal Saline] 250 ml IV Q24H 04/04/18 05:00 BASIC METABOLIC PANEL,BMP [CHEM] Timed CBC WITH AUTO DIFF [HEME] Timed 04/04/18 05:11 INR,PT,PROTHROMBIN TIME [COAG] AM - Plan Plan:: ASSESSMENT AND PLAN LEFT LUNG PNEUMONIA WITH EARLY SEPSIS-improved since admission with less shortness of breath and no significant temperature elevation. White blood cell count is elevated. He has been hemodynamically stable with resolution of tachycardia and sepsis -Blood and sputum cultures pending -Broad-spectrum IV antibiotic therapy because of recent history of oral antibiotics and prednisone; Zosyn, Azactam, and azithromycin, pending culture results -Saline lock IV HYPOXIA-acute, he does not use oxygen at baseline. Secondary to pneumonia with COPD exacerbation -Supplemental oxygen as needed -Continuous pulse oximetry COPD EXACERBATION-secondary to pneumonia -Nebulized albuterol and duo nebs -Continue outpatient medications including Spiriva and Advair -Solu-Medrol 40 mg IV every 12 hours HISTORY OF DEEP VEIN THROMBOSIS AND PULMONARY EMBOLI-INR remains subtherapeutic -Warfarin 7.5 mg by mouth today -Lovenox 40 mg subcutaneous daily until INR is therapeutic -Repeat INR in a.m. MAINTENANCE ISSUES -DVT prophylaxis; current therapy with warfarin should provide adequate DVT prophylaxis, because of high risk will also use SCUDs -GI prophylaxis; not indicated -Yeh catheter; not indicated -Nutrition; regular diet -Nicotine dependence; not required CODE STATUS-FULL CODE ADMISSION STATUS-patient will be admitted to inpatient status, expect at least a 2 night hospital stay for evaluation and management of problems as outlined above. At the time of this admission I do not reasonably expected evaluation and management of this problem will require more than a 96 hour hospital stay. DISPOSITION-anticipate discharge to home after the hospital stay. PRIMARY CARE PROVIDER-patient is from the [facility] and receives his medical care there
[2018-04-03] MEDS: Aztreonam/Dextrose-Water 1 GM in Premix Bag 1 BAG IV SCH ×2 (14:54→22:45)
[2018-04-03] MEDS ORDERED: Latanoprost 0.005% Ophth Soln 2.5 ML Bottle EYEBOTH SCH (21:00)
[2018-04-03] MEDS: LUMIGAN 0.01% EYEBOTH SCH (21:09)
[2018-04-03] MEDS: Azithromycin 500 MG in Sodium Chloride 0.9% 250 ML IV SCH (21:38)
[2018-04-04] MEDS: oxyCODONE 5 MG Tab PO PRN ×3 (00:40→20:00)
[2018-04-04] MEDS: Zolpidem 5 MG Tab PO PRN ×2 (00:44→22:06)
[2018-04-04] MEDS: Piperacillin/Tazobactam/Dext 3.375 GM in Premix Bag 1 BAG IV SCH ×4 (02:05→20:00)
[2018-04-04] MEDS: oxyCODONE ER 20 MG TAB.ER PO SCH ×3 (05:01→22:06)
[2018-04-04] MEDS: Aztreonam/Dextrose-Water 1 GM in Premix Bag 1 BAG IV SCH (05:01)
[2018-04-04] MEDS: Formoterol/Mometasone 200-5 MCG 8.8 GM Inhaler IH SCH ×2 (07:27→20:05)
[2018-04-04] MEDS: Tiotropium Inhaler 18 MCG Inhalation Powder Cap Kit of 5 INH SCH (07:27)
[2018-04-04] MEDS: Albuterol/Ipratropium 3.0-0.5 MG/3 ML Neb Soln NEB SCH ×4 (07:27→20:09)
[2018-04-04] MEDS ORDERED: Potassium Chloride 20 MEQ Tab.ER PO ONE (09:00)
[2018-04-04] MEDS: Furosemide 40 MG Tab PO SCH (09:39)
[2018-04-04] MEDS: amLODIPine 5 MG Tab PO SCH (09:39)
[2018-04-04] MEDS: Citalopram 20 MG Tab PO SCH (09:39)
--- NOTE | 2018-04-04 10:30 | PCM.PN ---
- General Info Date of Service: 04/04/18 Subjective Update: Mr. Alvarado has remained fairly stable over the last 24 hours with no recurrent temperature elevation and good vital signs. He did develop hypoxia during the night and has been on supplemental oxygen, this morning sats are good on room air. He is been able to be up and walking in the hallways. Shortness of breath has improved, continues to have a cough intermittently productive of sputum and occasionally associated with hemoptysis. Functional Status: Reports: Tolerating Diet, Ambulating, Urinating - Review of Systems General: Reports: Weakness. Denies: Fever, Chills Pulmonary: Reports: Shortness of Breath, Cough, Sputum, Hemoptysis. Denies: Wheezing Cardiovascular: Reports: Dyspnea on Exertion. Denies: Chest Pain, Palpitations , Orthopnea, PND, Edema, Lightheadedness Gastrointestinal: Reports: No Symptoms - Patient Data Vitals - Most Recent: Last Vital Signs Temp 96.2 F 04/04/18 06:54 Pulse 79 04/04/18 07:28 Resp 18 04/04/18 06:54 BP 142/56 H 04/04/18 09:39 Pulse Ox 92 L 04/04/18 08:32 Weight - Most Recent: 314 lb I&O - Last 24 Hours: Intake & Output 04/03/18 04/04/18 04/04/18 22:59 06:59 14:59 Intake Total 750 500 320 Output Total 700 1625 Balance 50 -1125 320 Lab Results Last 24 Hours: Laboratory Results - last 24 hr 04/04/18 04/04/18 04/04/18 Range/Units 05:00 05:00 05:11 WBC 19.2 H (4.5-11.0) K/uL RBC 4.24 L (4.30-5.90) M/uL Hgb 13.1 (12.0-15.0) g/dL Hct 38.0 L (40.0-54.0) % MCV 90 (80-98) fL MCH 31 (27-31) pg MCHC 35 (32-36) % Plt Count 189 (150-400) K/uL Neut % (Auto) 94 H (36-66) % Lymph % (Auto) 3 L (24-44) % [place] % (Auto) 3 (2-6) % Eos % (Auto) 0 L (2-4) % Baso % (Auto) 0 (0-1) % PT 35.6 H (9.5-12.0) sec INR 3.47 H (0.80-1.20) Sodium 138 L (140-148) mmol/L Potassium 3.4 L (3.6-5.2) mmol/L Chloride 103 (100-108) mmol/L Carbon Dioxide 29 (21-32) mmol/L Anion Gap 9.4 (5.0-14.0) mmol/L BUN 13 (7-18) mg/dL Creatinine 1.2 (0.8-1.3) mg/dL Est Cr Clr Drug Dosing 64.21 mL/min Estimated GFR (MDRD) > 60 (>60) Glucose 194 H (74-106) mg/dL Calcium 8.6 (8.5-10.1) mg/dL [place] Results Last 24 Hours: Microbiology 04/03/18 02:21 Gram Stain - Final Sputum - Expectorated Respiratory Culture - Preliminary NORMAL RESPIRATORY [place] 1 DAY 04/02/18 19:56 Urine Culture - Preliminary Urine, Clean Catch MIXED POSITIVE [place] DAY 1 04/02/18 18:02 Aerobic Blood Culture - Preliminary Blood NO GROWTH AFTER 1 DAY Anaerobic Blood Culture - Preliminary NO GROWTH AFTER 1 DAY Med Orders - Current: Current Medications Acetaminophen (Tylenol) 650 mg PO Q4H PRN PRN Reason: Pain (Mild 1-3)/fever Albuterol (Proventil Neb Soln) 2.5 mg NEB Q4H PRN PRN Reason: Shortness Of Breath/wheezing Albuterol/Ipratropium (Duoneb 3.0-0.5 Mg/3 Ml) 3 ml NEB QIDRT [facility] Last Admin: 04/04/18 07:27 Dose: 3 ml Amlodipine Besylate (Norvasc) 5 mg PO DAILY [facility] Last Admin: 04/04/18 09:39 Dose: 5 mg Citalopram Hydrobromide (Celexa) 40 mg PO DAILY [facility] Last Admin: 04/04/18 09:39 Dose: 40 mg Furosemide (Lasix) 40 mg PO DAILY [facility] Last Admin: 04/04/18 09:39 Dose: 40 mg Azithromycin 500 mg/ Sodium (Chloride) 250 mls @ 250 mls/hr IV Q24H [facility] Last Admin: 04/03/18 21:38 Dose: 250 mls/hr Piperacillin/Tazobactam/ (Dextrose 3.375 gm/ Premix) 50 mls @ 100 mls/hr IV Q6H [facility] Last Admin: 04/04/18 09:46 Dose: 100 mls/hr Lorazepam (Ativan) 1 mg IVPUSH Q4H PRN PRN Reason: Anxiety Last Admin: 04/03/18 20:57 Dose: 1 mg Magnesium Hydroxide (Milk Of Magnesia) 30 ml PO Q12H PRN PRN Reason: Constipation Mometasone Furoate/Formoterol Fumar (Dulera 200-5 Mcg) 2 puff IH BIDRT [facility] Last Admin: 04/04/18 07:27 Dose: 2 puff Lumigan 0.01% (Ptom) 0 each EYEBOTH BEDTIME [facility] Last Admin: 04/03/18 21:09 Dose: 1 each Ondansetron HCl (Zofran) 4 mg IV Q4H PRN PRN Reason: Nausea/Vomiting Oxycodone HCl (Oxycodone) 5 mg PO Q4H PRN PRN Reason: Pain (moderate 4-6) Last Admin: 04/04/18 00:40 Dose: 5 mg Oxycodone HCl (Oxycontin) 20 mg PO Q8H [facility] Last Admin: 04/04/18 05:01 Dose: 20 mg Polyethylene Glycol (Miralax) 17 gm PO DAILY PRN PRN Reason: Constipation Senna/Docusate Sodium (Senna Plus) 1 tab PO BID PRN PRN Reason: Constipation Sodium Chloride (Saline Flush) 10 ml FLUSH ASDIRECTED PRN PRN Reason: Keep Vein Open Tiotropium [place] (Spiriva Handihaler) 18 mcg INH DAILY@0700 [facility] Last Admin: 04/04/18 07:27 Dose: 18 mcg Zolpidem Tartrate (Ambien) 5 mg PO BEDTIME PRN PRN Reason: Insomnia Last Admin: 04/04/18 00:44 Dose: 5 mg Discontinued Medications Acetaminophen (Tylenol Extra Strength) 1,000 mg PO ONETIME ONE Stop: 04/02/18 18:01 Last Admin: 04/02/18 18:06 Dose: 1,000 mg Albuterol/Ipratropium (Duoneb 3.0-0.5 Mg/3 Ml) 3 ml NEB ONETIME ONE Stop: 04/02/18 18:07 Last Admin: 04/02/18 18:15 Dose: 3 ml Albuterol/Ipratropium (Duoneb 3.0-0.5 Mg/3 Ml) 3 ml NEB QID [facility] Last Admin: 04/03/18 08:20 Dose: Not Given Enoxaparin Sodium (Lovenox) 40 mg SUBCUT DAILY [facility] Last Admin: 04/03/18 10:34 Dose: 40 mg Sodium Chloride (Normal Saline) 1,000 mls @ 500 mls/hr IV .BOLUS ONE Stop: 04/02/18 19:59 Last Admin: 04/02/18 18:07 Dose: 500 mls/hr Piperacillin Sod/Tazobactam (Sod 3.375 gm/ Sodium Chloride) 50 mls @ 100 mls/ hr IV Q6H [facility] Last Admin: 04/03/18 03:30 Dose: 100 mls/hr Azithromycin 500 mg/ Sodium (Chloride) 250 mls @ 250 mls/hr IV Q24H [facility] Last Admin: 04/02/18 22:28 Dose: 250 mls/hr Aztreonam 1 gm/ Sodium (Chloride) 100 mls @ 200 mls/hr IV Q8HR [facility] Last Admin: 04/02/18 23:41 Dose: Not Given Lactated Ringer's (Ringers, Lactated) 1,000 mls @ 500 mls/hr IV ASDIRECTED [facility] Stop: 04/03/18 00:58 Last Admin: 04/02/18 21:24 Dose: 500 mls/hr Lactated Ringer's (Ringers, Lactated) 1,000 mls @ 125 mls/hr IV ASDIRECTED [facility] Last Admin: 04/03/18 01:35 Dose: 125 mls/hr Aztreonam 1 gm/ Sodium (Chloride) 100 mls @ 200 mls/hr IV Q8HR [facility] Last Admin: 04/03/18 05:53 Dose: 200 mls/hr Aztreonam/Dextrose 1 gm/ (Premix) 50 mls @ 100 mls/hr IV Q8HR [facility] Last Admin: 04/04/18 05:01 Dose: 100 mls/hr Latanoprost (Xalatan 0.005% Oph Soln) 0 ml EYEBOTH BEDTIME [facility] Last Admin: 04/02/18 23:08 Dose: Not Given Latanoprost (Xalatan 0.005% Ophth Soln) 0 ml EYEBOTH BEDTIME [facility] Last Admin: 04/02/18 22:08 Dose: 1 drop Latanoprost (Xalatan 0.005% Ophth Soln) 0 ml EYEBOTH BEDTIME [facility] Methylprednisolone Sodium Succinate (Solu-Medrol) 40 mg IVPUSH Q6H [facility] Last Admin: 04/03/18 03:30 Dose: 40 mg Methylprednisolone Sodium Succinate (Solu-Medrol) 40 mg IVPUSH Q6H [facility] Last Admin: 04/03/18 10:34 Dose: 40 mg Methylprednisolone Sodium Succinate (Solu-Medrol) 40 mg IVPUSH Q12H [facility] Last Admin: 04/03/18 21:10 Dose: 40 mg Mometasone Furoate/Formoterol Fumar (Dulera 200-5 Mcg) 0 puff IH BID [facility] Last Admin: 04/02/18 21:37 Dose: 2 puff Oxycodone HCl (Oxycontin) 20 mg PO Q8H [facility] Last Admin: 04/03/18 05:56 Dose: Not Given Oxycodone HCl (Oxycontin) 20 mg PO ONETIME ONE Stop: 04/03/18 08:16 Last Admin: 04/03/18 08:15 Dose: 20 mg Potassium Chloride (Klor-Con M20) 40 meq PO ONETIME ONE Stop: 04/04/18 09:01 Last Admin: 04/04/18 09:39 Dose: 40 meq Sodium Chloride (Saline Flush) 10 ml FLUSH ASDIRECTED PRN PRN Reason: Keep Vein Open Last Admin: 04/02/18 18:07 Dose: 10 ml Warfarin Sodium (Coumadin Sliding Scale) 1 each PO DAILY [facility] Warfarin Sodium (Coumadin) 5 mg PO NOW ONE Stop: 04/02/18 21:16 Last Admin: 04/02/18 21:22 Dose: 5 mg Warfarin Sodium (Coumadin) 7.5 mg PO ONETIME ONE Stop: 04/03/18 10:01 Last Admin: 04/03/18 10:33 Dose: 7.5 mg - Exam Quality Assessment: DVT Prophylaxis. No: Central Line/PICC, Urine Catheter General: Alert, Oriented, Cooperative, Mild Distress Lungs: Clear to Auscultation, Normal Respiratory Effort, Decreased Breath Sounds. No: Rhonchi, Wheezing Cardiovascular: Regular Rate, Regular Rhythm, No Murmurs GI/Abdominal Exam: Soft, Non-Tender, No Organomegaly, No Distention Extremities: Non-Tender, No Pedal Edema Skin: Warm, Dry, Intact - Problem List Review Problem List Initiated/Reviewed/Updated: Yes - My Orders Last 24 Hours: My Active Orders 04/03/18 11:24 Convert IV to Saline Lock [OM.PC] Routine 04/03/18 14:00 oxyCODONE ER [OxyCONTIN] 20 mg PO Q8H 04/03/18 21:00 Non-Formulary Medication [NF Drug] 0 each EYEBOTH BEDTIME 04/03/18 21:30 Azithromycin [Zithromax] 500 mg Sodium Chloride 0.9% [Normal Saline] 250 ml IV Q24H 04/05/18 05:00 BASIC METABOLIC PANEL,BMP [CHEM] Timed CBC WITH AUTO DIFF [HEME] Timed INR,PT,PROTHROMBIN TIME [COAG] Timed - Plan Plan:: ASSESSMENT AND PLAN LEFT LUNG PNEUMONIA WITH EARLY SEPSIS-no recurrent temperature elevations, white count elevated but it's likely secondary to use of glucocorticoid therapy. Vital signs have been stable, there is been further improvement in cough and shortness of breath -Blood and sputum cultures pending -Broad-spectrum IV antibiotic therapy because of recent history of oral antibiotics and prednisone; continue Zosyn and azithromycin, pending culture results -Discontinue Azactam, cultures are negative thus far -Saline lock IV HYPOXIA -He has required supplemental oxygen at night, during the day saturations have been within desired range on room air -Supplemental oxygen as needed -Continuous pulse oximetry COPD EXACERBATION- wheezing has resolved, shortness of breath significantly improved -Nebulized albuterol and duo nebs -Continue outpatient medications including Spiriva and Advair -Discontinue IV Solu-Medrol HISTORY OF DEEP VEIN THROMBOSIS AND PULMONARY EMBOLI-INR supratherapeutic today -Hold warfarin today -Repeat INR in a.m. MAINTENANCE ISSUES -DVT prophylaxis; current therapy with warfarin should provide adequate DVT prophylaxis, because of high risk will also use SCUDs -GI prophylaxis; not indicated -Yeh catheter; not indicated -Nutrition; regular diet -Nicotine dependence; not required CODE STATUS-FULL CODE ADMISSION STATUS-patient will be admitted to inpatient status, expect at least a 2 night hospital stay for evaluation and management of problems as outlined above. At the time of this admission I do not reasonably expected evaluation and management of this problem will require more than a 96 hour hospital stay. DISPOSITION-anticipate discharge to home after the hospital stay. PRIMARY CARE PROVIDER-patient is from the [facility] and receives his medical care there
[2018-04-04] MEDS: methylPREDNISolone Sodium Succinate 40 MG/1 ML SDV IVPUSH SCH (11:03)
[2018-04-04] MEDS: Lactobacillus Rhamnosus GG (Probiotic) Cap PO SCH ×2 (12:11→20:05)
[2018-04-04] MEDS: LORazepam 2 MG/ML SDV IVPUSH PRN (20:00)
[2018-04-04] MEDS: LUMIGAN 0.01% EYEBOTH SCH (20:05)
[2018-04-04] MEDS: Azithromycin 500 MG in Sodium Chloride 0.9% 250 ML IV SCH (20:55)
[2018-04-05] MEDS: Piperacillin/Tazobactam/Dext 3.375 GM in Premix Bag 1 BAG IV SCH ×3 (02:29→14:25)
[2018-04-05] MEDS: LORazepam 2 MG/ML SDV IVPUSH PRN ×2 (02:37→08:12)
[2018-04-05] MEDS: oxyCODONE ER 20 MG TAB.ER PO SCH ×3 (06:18→22:05)
[2018-04-05] MEDS: Tiotropium Inhaler 18 MCG Inhalation Powder Cap Kit of 5 INH SCH (07:20)
[2018-04-05] MEDS: Formoterol/Mometasone 200-5 MCG 8.8 GM Inhaler IH SCH ×2 (07:20→20:25)
[2018-04-05] MEDS: Albuterol/Ipratropium 3.0-0.5 MG/3 ML Neb Soln NEB SCH ×4 (07:20→20:31)
[2018-04-05] MEDS: Lactobacillus Rhamnosus GG (Probiotic) Cap PO SCH ×2 (08:13→20:24)
[2018-04-05] MEDS: amLODIPine 5 MG Tab PO SCH (08:13)
[2018-04-05] MEDS: Citalopram 20 MG Tab PO SCH (08:13)
[2018-04-05] MEDS: Furosemide 40 MG Tab PO SCH (08:13)
--- NOTE | 2018-04-05 08:35 | CR ---
CHEST: Portable CLINICAL HISTORY:Fever, dyspnea COMPARISON:None FINDINGS: There is a diffuse left lower lobe infiltrate. Right lung is clear. Prominent vascularity is normal. IMPRESSION: Left lower lobe pneumonic infiltrate Short-term follow-up recommended following a course of treatment
--- NOTE | 2018-04-05 10:40 | PCM.PN ---
- General Info Date of Service: 04/05/18 Functional Status: Reports: Pain Controlled, Tolerating Diet - Review of Systems General: Denies: Fever Pulmonary: Reports: Cough, Hemoptysis Cardiovascular: Denies: Chest Pain Systems Review Comment:: There were no acute events overnight. Patient reports slow but steady improvement in his shortness of breath. He does occasionally have some hemoptysis. He does not report any chest pain. He has been slowly improving his activity. He has intermittently required supplemental oxygen overnight but is off as of this morning. INR is at the upper limits of therapeutic at just over 3. He has not had any fevers. - Patient Data Vitals - Most Recent: Last Vital Signs Temp 36.4 C 04/05/18 07:00 Pulse 99 04/05/18 07:00 Resp 18 04/05/18 07:00 BP 135/70 04/05/18 08:13 Pulse Ox 96 04/05/18 07:15 Weight - Most Recent: 142.7 kg I&O - Last 24 Hours: Intake & Output 04/04/18 04/05/18 04/05/18 22:59 06:59 14:59 Intake Total 650 300 Output Total 1350 500 Balance -1350 150 300 Lab Results Last 24 Hours: Laboratory Results - last 24 hr 04/05/18 04/05/18 04/05/18 Range/Units 06:00 06:00 06:00 WBC 15.5 H (4.5-11.0) K/uL RBC 3.88 L (4.30-5.90) M/uL Hgb 11.9 L (12.0-15.0) g/dL Hct 35.3 L (40.0-54.0) % MCV 91 (80-98) fL MCH 31 (27-31) pg MCHC 34 (32-36) % Plt Count 183 (150-400) K/uL Neut % (Auto) 89 H (36-66) % Lymph % (Auto) 6 L (24-44) % [place] % (Auto) 5 (2-6) % Eos % (Auto) 0 L (2-4) % Baso % (Auto) 0 (0-1) % PT 31.8 H (9.5-12.0) sec INR 3.08 H (0.80-1.20) Sodium 139 L (140-148) mmol/L Potassium 3.8 (3.6-5.2) mmol/L Chloride 105 (100-108) mmol/L Carbon Dioxide 29 (21-32) mmol/L Anion Gap 8.8 (5.0-14.0) mmol/L BUN 18 (7-18) mg/dL Creatinine 0.9 (0.8-1.3) mg/dL Est Cr Clr Drug Dosing 85.62 mL/min Estimated GFR (MDRD) > 60 (>60) Glucose 146 H (74-106) mg/dL Calcium 8.4 L (8.5-10.1) mg/dL [place] Results Last 24 Hours: Microbiology 04/03/18 02:21 Gram Stain - Final Sputum - Expectorated Respiratory Culture - Final NORMAL RESPIRATORY [place] 2 DAYS 04/02/18 19:56 Urine Culture - Final Urine, Clean Catch MIXED POSITIVE [place] DAY 2 04/02/18 18:02 Aerobic Blood Culture - Preliminary Blood NO GROWTH AFTER 2 DAYS Anaerobic Blood Culture - Preliminary NO GROWTH AFTER 2 DAYS Med Orders - Current: Current Medications Acetaminophen (Tylenol) 650 mg PO Q4H PRN PRN Reason: Pain (Mild 1-3)/fever Albuterol (Proventil Neb Soln) 2.5 mg NEB Q4H PRN PRN Reason: Shortness Of Breath/wheezing Albuterol/Ipratropium (Duoneb 3.0-0.5 Mg/3 Ml) 3 ml NEB QIDRT [facility] Last Admin: 04/05/18 07:20 Dose: 3 ml Amlodipine Besylate (Norvasc) 5 mg PO DAILY [facility] Last Admin: 04/05/18 08:13 Dose: 5 mg Citalopram Hydrobromide (Celexa) 40 mg PO DAILY [facility] Last Admin: 04/05/18 08:13 Dose: 40 mg Furosemide (Lasix) 40 mg PO DAILY [facility] Last Admin: 04/05/18 08:13 Dose: 40 mg Piperacillin/Tazobactam/ (Dextrose 3.375 gm/ Premix) 50 mls @ 100 mls/hr IV Q6H [facility] Stop: 04/05/18 16:00 Last Admin: 04/05/18 08:12 Dose: 100 mls/hr Lactobacillus Rhamnosus (Culturelle) 1 cap PO BID [facility] Last Admin: 07/16/18 08:13 Dose: 1 cap Magnesium Hydroxide (Milk Of Magnesia) 30 ml PO Q12H PRN PRN Reason: Constipation Last Admin: 04/04/18 16:22 Dose: 30 ml Mometasone Furoate/Formoterol Fumar (Dulera 200-5 Mcg) 2 puff IH BIDRT [facility] Last Admin: 04/05/18 07:20 Dose: 2 puff Lumigan 0.01% (Ptom) 0 each EYEBOTH BEDTIME [facility] Last Admin: 04/04/18 20:05 Dose: 1 each Ondansetron HCl (Zofran) 4 mg IV Q4H PRN PRN Reason: Nausea/Vomiting Oxycodone HCl (Oxycodone) 5 mg PO Q4H PRN PRN Reason: Pain (moderate 4-6) Last Admin: 04/04/18 20:00 Dose: 5 mg Oxycodone HCl (Oxycontin) 20 mg PO Q8H [facility] Last Admin: 04/05/18 06:18 Dose: 20 mg Polyethylene Glycol (Miralax) 17 gm PO DAILY PRN PRN Reason: Constipation Senna/Docusate Sodium (Senna Plus) 1 tab PO BID PRN PRN Reason: Constipation Sodium Chloride (Saline Flush) 10 ml FLUSH ASDIRECTED PRN PRN Reason: Keep Vein Open Tiotropium [place] (Spiriva Handihaler) 18 mcg INH DAILY@0700 [facility] Last Admin: 04/05/18 07:20 Dose: 18 mcg Zolpidem Tartrate (Ambien) 5 mg PO BEDTIME PRN PRN Reason: Insomnia Last Admin: 04/04/18 00:44 Dose: 5 mg Discontinued Medications Acetaminophen (Tylenol Extra Strength) 1,000 mg PO ONETIME ONE Stop: 04/02/18 18:01 Last Admin: 04/02/18 18:06 Dose: 1,000 mg Albuterol/Ipratropium (Duoneb 3.0-0.5 Mg/3 Ml) 3 ml NEB ONETIME ONE Stop: 04/02/18 18:07 Last Admin: 04/02/18 18:15 Dose: 3 ml Albuterol/Ipratropium (Duoneb 3.0-0.5 Mg/3 Ml) 3 ml NEB QID [facility] Last Admin: 04/03/18 08:20 Dose: Not Given Enoxaparin Sodium (Lovenox) 40 mg SUBCUT DAILY [facility] Last Admin: 04/03/18 10:34 Dose: 40 mg Sodium Chloride (Normal Saline) 1,000 mls @ 500 mls/hr IV .BOLUS ONE Stop: 04/02/18 19:59 Last Admin: 04/02/18 18:07 Dose: 500 mls/hr Piperacillin Sod/Tazobactam (Sod 3.375 gm/ Sodium Chloride) 50 mls @ 100 mls/ hr IV Q6H [facility] Last Admin: 04/03/18 03:30 Dose: 100 mls/hr Azithromycin 500 mg/ Sodium (Chloride) 250 mls @ 250 mls/hr IV Q24H [facility] Last Admin: 04/02/18 22:28 Dose: 250 mls/hr Aztreonam 1 gm/ Sodium (Chloride) 100 mls @ 200 mls/hr IV Q8HR [facility] Last Admin: 04/02/18 23:41 Dose: Not Given Lactated Ringer's (Ringers, Lactated) 1,000 mls @ 500 mls/hr IV ASDIRECTED [facility] Stop: 04/03/18 00:58 Last Admin: 04/02/18 21:24 Dose: 500 mls/hr Lactated Ringer's (Ringers, Lactated) 1,000 mls @ 125 mls/hr IV ASDIRECTED [facility] Last Admin: 04/03/18 01:35 Dose: 125 mls/hr Aztreonam 1 gm/ Sodium (Chloride) 100 mls @ 200 mls/hr IV Q8HR [facility] Last Admin: 04/03/18 05:53 Dose: 200 mls/hr Azithromycin 500 mg/ Sodium (Chloride) 250 mls @ 250 mls/hr IV Q24H [facility] Last Admin: 04/04/18 20:55 Dose: 250 mls/hr Aztreonam/Dextrose 1 gm/ (Premix) 50 mls @ 100 mls/hr IV Q8HR [facility] Last Admin: 04/04/18 05:01 Dose: 100 mls/hr Latanoprost (Xalatan 0.005% Ophth Soln) 0 ml EYEBOTH BEDTIME [facility] Last Admin: 04/02/18 23:08 Dose: Not Given Latanoprost (Xalatan 0.005% Ophth Soln) 0 ml EYEBOTH BEDTIME [facility] Last Admin: 04/02/18 22:08 Dose: 1 drop Latanoprost (Xalatan 0.005% Ophth Soln) 0 ml EYEBOTH BEDTIME [facility] Lorazepam (Ativan) 1 mg IVPUSH Q4H PRN PRN Reason: Anxiety Last Admin: 04/05/18 08:12 Dose: 1 mg Methylprednisolone Sodium Succinate (Solu-Medrol) 40 mg IVPUSH Q6H [facility] Last Admin: 04/03/18 03:30 Dose: 40 mg Methylprednisolone Sodium Succinate (Solu-Medrol) 40 mg IVPUSH Q6H [facility] Last Admin: 04/03/18 10:34 Dose: 40 mg Methylprednisolone Sodium Succinate (Solu-Medrol) 40 mg IVPUSH Q12H [facility] Last Admin: 04/04/18 11:03 Dose: Not Given Mometasone Furoate/Formoterol Fumar (Dulera 200-5 Mcg) 0 puff IH BID [facility] Last Admin: 04/02/18 21:37 Dose: 2 puff Oxycodone HCl (Oxycontin) 20 mg PO Q8H [facility] Last Admin: 04/03/18 05:56 Dose: Not Given Oxycodone HCl (Oxycontin) 20 mg PO ONETIME ONE Stop: 04/03/18 08:16 Last Admin: 04/03/18 08:15 Dose: 20 mg Potassium Chloride (Klor-Con M20) 40 meq PO ONETIME ONE Stop: 04/04/18 09:01 Last Admin: 04/04/18 09:39 Dose: 40 meq Sodium Chloride (Saline Flush) 10 ml FLUSH ASDIRECTED PRN PRN Reason: Keep Vein Open Last Admin: 04/02/18 18:07 Dose: 10 ml Warfarin Sodium (Coumadin Sliding Scale) 1 each PO DAILY [facility] Warfarin Sodium (Coumadin) 5 mg PO NOW ONE Stop: 04/02/18 21:16 Last Admin: 04/02/18 21:22 Dose: 5 mg Warfarin Sodium (Coumadin) 7.5 mg PO ONETIME ONE Stop: 04/03/18 10:01 Last Admin: 04/03/18 10:33 Dose: 7.5 mg - Exam Quality Assessment: No: Supplemental Oxygen General: Alert, Oriented, Cooperative, No Acute Distress Neck: Supple Lungs: Normal Respiratory Effort, Crackles (both bases L>R). No: Wheezing Cardiovascular: Regular Rate, Regular Rhythm Extremities: No Pedal Edema Skin: Warm, Dry Psy/Mental Status: Alert, Normal Affect - Problem List Review Problem List Initiated/Reviewed/Updated: Yes - My Orders Last 24 Hours: My Active Orders 04/05/18 10:38 Communication Order [RC] ROUTINE 04/05/18 21:00 Amoxicillin/Clavulanate K [Augmentin 875 MG/125 MG] 1 tab PO Q12HR Azithromycin [Zithromax] 500 mg PO BEDTIME 04/06/18 05:00 CBC W/O DIFF,HEMOGRAM [HEME] Timed (1) INR,PT,PROTHROMBIN TIME [COAG] Timed POTASSIUM,K [CHEM] Timed - Plan Plan:: ASSESSMENT AND PLAN LEFT LUNG PNEUMONIA WITH EARLY SEPSIS - sepsis has resolved, patient seems to be slowly improving. He does have some hemoptysis but I suspect that his supratherapeutic INR contributed to this since clinically he is getting better. Tolerating antibiotics. Cultures negative so far. -Blood and sputum cultures pending -Change antibiotics to oral azithromycin and Augmentin -Nebulizers as needed Supplement oxygen as needed- -Saline lock IV HYPOXIA - He has continued to require supplemental oxygen at night, during the day saturations have been within desired range on room air -Supplemental oxygen as needed -Continuous pulse oximetry COPD EXACERBATION - wheezing has resolved, shortness of breath slowly improving. -Nebulized albuterol and duo nebs -Continue outpatient medications including Spiriva and Advair HISTORY OF DEEP VEIN THROMBOSIS AND PULMONARY EMBOLI - INR at the upper limits of normal. -Hold warfarin today with hemoptysis -Repeat INR in a.m. MAINTENANCE ISSUES -DVT prophylaxis; current therapy with warfarin should provide adequate DVT prophylaxis, because of high risk will also use SCUDs -GI prophylaxis; not indicated -Yeh catheter; not indicated -Nutrition; regular diet DISPOSITION - anticipate discharge to home after the hospital stay, likely tomorrow if stable overnight Samm Abebe M.D.
[2018-04-05] MEDS: oxyCODONE 5 MG Tab PO PRN (18:33)
[2018-04-05] MEDS: ALPRAZolam 0.5 MG Tab PO PRN (18:35)
[2018-04-05] MEDS: Amoxicillin/Clavulanate K 875-125 MG Tab PO SCH (20:24)
[2018-04-05] MEDS: LUMIGAN 0.01% EYEBOTH SCH (20:25)
[2018-04-05] MEDS ORDERED: Azithromycin 250 MG Tab PO SCH (21:00)
[2018-04-06] MEDS: oxyCODONE ER 20 MG TAB.ER PO SCH ×2 (05:44→14:07)
[2018-04-06] MEDS: Formoterol/Mometasone 200-5 MCG 8.8 GM Inhaler IH SCH (07:10)
[2018-04-06] MEDS: Tiotropium Inhaler 18 MCG Inhalation Powder Cap Kit of 5 INH SCH (07:10)
[2018-04-06] MEDS: Albuterol/Ipratropium 3.0-0.5 MG/3 ML Neb Soln NEB SCH ×3 (07:10→14:29)
[2018-04-06] MEDS: ALPRAZolam 0.5 MG Tab PO PRN (08:47)
[2018-04-06] MEDS: Amoxicillin/Clavulanate K 875-125 MG Tab PO SCH (08:48)
[2018-04-06] MEDS: Furosemide 40 MG Tab PO SCH (08:48)
[2018-04-06] MEDS: Lactobacillus Rhamnosus GG (Probiotic) Cap PO SCH (08:48)
[2018-04-06] MEDS: amLODIPine 5 MG Tab PO SCH (08:48)
[2018-04-06] MEDS: Citalopram 20 MG Tab PO SCH (08:48)
--- NOTE | 2018-04-06 10:56 | PCM.DCSUM1 ---
Discharge Summary - Hospital Course Brief History: 62-year-old male with COPD with recent exacerbation who presented with fever, cough and hemoptysis. He was admitted for management of left lung pneumonia with sepsis and hypoxic respiratory failure. Diagnosis: Stroke: No - Discharge Data Discharge Date: 04/06/18 Discharge Disposition: Home, Self-Care 01 Condition: Fair - Patient Summary/Data Labs Pending at D/C: final results of blood cultures are pending but are negative at 3 days Hospital Course: Nicolas presented to the emergency room with fever, cough and shortness of breath as well as hemoptysis. Workup in the emergency room suggested left lower lung pneumonia with sepsis and hypoxic respiratory failure. Evidence for sepsis included the hypoxic respiratory failure, tachypnea and tachycardia. He was started on broad-spectrum antibiotic therapy with recent antibiotic use. Antibiotics included azithromycin, aztreonam and piperacillin/tazobactam. there was evidence for wheezing on arrival and he was also started on IV Solu-Medrol. He required supplemental oxygen. He was admitted to the floor and did receive some IV fluids overnight. Over the course of the next couple of days he made slow but steady improvement. We are able to wean down the oxygen. He did not have further fevers after admission. His wheezing resolved and steroids were tapered and eventually stopped. The day before discharge she required oxygen only at night but was off during the day. Overnight prior to the day of discharge she did not require any supplemental oxygen and remains off of supplemental oxygen as of the time of discharge. Cultures have been negative but he has been improving with current antibiotic therapy. 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 He will be discharged with a azithromycin and Augmentin as outlined in the medication section. - Patient Instructions Diet: Regular Diet as Tolerated Activity: As Tolerated Showering/Bathing: May Shower Notify Provider of: Fever, Increased Pain, Nausea and/or Vomiting Other/Special Instructions: 1. You were in the hospital for management of left lower lobe pneumonia with sepsis syndrome. We did not determine a causative bacteria for the infection. You have been improving with antibiotic therapy. I do recommend additional antibiotic therapy as outlined below: --Azithromycin 500 mg tablet, take 1 tablet at bedtime for 3 more doses. Your first dose is due tonight. --Augmentin 875/125 mg, take 1 tablet twice daily with food. Your next dose is due tonight. 2. Please continue your other home medications as previously prescribed. Your INR/warfarin level is 2.4 on the day of discharge. 3. Follow up with your primary care physician and flag decorator as scheduled early next week. I have included a copy of the discharge summary and a CD with your chest x-ray for their review. 4. Seek medical attention if you develop fever greater than 101, you develop sudden onset of shortness of breath or if you develop chest pain/pressure. - Discharge Plan *PRESCRIPTION DRUG MONITORING PROGRAM REVIEWED*: No *COPY OF PRESCRIPTION DRUG MONITORING REPORT IN PATIENT SIDRA: No Prescriptions/Med Rec: Amoxicillin/Clavulanate K [Augmentin 875-125 MG] 1 tab PO BID #11 tablet Azithromycin 500 mg PO BEDTIME #3 tablet Home Medications: Home Meds ALPRAZolam [Xanax] 3 - 5 tab PO ASDIRECTED PRN 04/02/18 [History] Bimatoprost [LUMIGAN 0.01% Ophth Soln] 1 drop EYEBOTH BEDTIME 04/02/18 [History] Citalopram [Citalopram HBr] 40 mg PO DAILY 04/02/18 [History] Fluticasone/Salmeterol [Advair 250-50 Diskus] 1 puff IN BID 04/02/18 [History] Furosemide [Lasix] 40 mg PO DAILY 04/02/18 [History] Tiotropium [Spiriva HandiHaler] 1 dose IN DAILY 04/02/18 [History] Zolpidem Tartrate [Ambien] 5 mg PO BEDTIME PRN 04/02/18 [History] amLODIPine [Norvasc] 5 mg PO DAILY 04/02/18 [History] oxyCODONE ER [OxyCONTIN] 20 mg PO Q8H 04/02/18 [History] Amoxicillin/Clavulanate K [Augmentin 875-125 MG] 1 tab PO BID #11 tablet [Rx] Azithromycin 500 mg PO BEDTIME #3 tablet 04/06/18 [Rx] Warfarin [Coumadin] 5 mg PO DAILY 04/06/18 [History] Patient Handouts: Azithromycin tablets, Amoxicillin; Clavulanic Acid extended- release tablets, Community-Acquired Pneumonia, Adult Referrals: Jorge Belle MD [Ordering Only Provider] - (f/u as scheduled after the hospital stay ) - Discharge Summary/Plan Comment DC Time >30 min.: No (25) - Patient Data Vitals - Most Recent: Last Vital Signs Temp 36.4 C 04/06/18 07:47 Pulse 95 04/06/18 07:47 Resp 18 04/06/18 07:47 BP 143/57 H 04/06/18 08:48 Pulse Ox 95 04/06/18 07:47 Weight - Most Recent: 142.7 kg I&O - Last 24 hours: Intake & Output 04/05/18 04/06/18 04/06/18 22:59 06:59 14:59 Intake Total 950 1200 Output Total 1800 1575 500 Balance -850 -375 -500 Lab Results - Last 24 hrs: Laboratory Results - last 24 hr 04/06/18 04/06/18 04/06/18 Range/Units 04:00 04:00 04:00 WBC 10.2 (4.5-11.0) K/uL RBC 3.93 L (4.30-5.90) M/uL Hgb 12.1 (12.0-15.0) g/dL Hct 35.9 L (40.0-54.0) % MCV 91 (80-98) fL MCH 31 (27-31) pg MCHC 34 (32-36) % Plt Count 178 (150-400) K/uL PT 26.0 H (9.5-12.0) sec INR 2.49 H (0.80-1.20) Potassium 3.8 (3.6-5.2) mmol/L CHER Results - Last 24 hrs: Microbiology 04/02/18 18:02 Aerobic Blood Culture - Preliminary Blood NO GROWTH AFTER 3 DAYS Anaerobic Blood Culture - Preliminary NO GROWTH AFTER 3 DAYS 04/03/18 02:21 Gram Stain - Final Sputum - Expectorated Respiratory Culture - Final NORMAL RESPIRATORY COLTON 2 DAYS 04/02/18 19:56 Urine Culture - Final Urine, Clean Catch MIXED POSITIVE COLTON DAY 2 Med Orders - Current: Current Medications Acetaminophen (Tylenol) 650 mg PO Q4H PRN PRN Reason: Pain (Mild 1-3)/fever Albuterol (Proventil Neb Soln) 2.5 mg NEB Q4H PRN PRN Reason: Shortness Of Breath/wheezing Albuterol/Ipratropium (Duoneb 3.0-0.5 Mg/3 Ml) 3 ml NEB QIDRT [facility] Last Admin: 04/06/18 07:10 Dose: 3 ml Alprazolam (Xanax) 1 mg PO BID PRN PRN Reason: Anxiety Last Admin: 04/06/18 08:47 Dose: 1 mg Amlodipine Besylate (Norvasc) 5 mg PO DAILY [facility] Last Admin: 04/06/18 08:48 Dose: 5 mg Amoxicillin/Clavulanate Potassium (Augmentin 875 Mg/125 Mg) 1 tab PO BID [facility] Last Admin: 04/06/18 08:48 Dose: 1 tab Azithromycin (Zithromax) 500 mg PO BEDTIME [facility] Last Admin: 04/05/18 20:24 Dose: 500 mg Citalopram Hydrobromide (Celexa) 40 mg PO DAILY [facility] Last Admin: 04/06/18 08:48 Dose: 40 mg Furosemide (Lasix) 40 mg PO DAILY [facility] Last Admin: 04/06/18 08:48 Dose: 40 mg Lactobacillus Rhamnosus (Culturelle) 1 cap PO BID [facility] Last Admin: 04/06/18 08:48 Dose: 1 cap Magnesium Hydroxide (Milk Of Magnesia) 30 ml PO Q12H PRN PRN Reason: Constipation Last Admin: 04/04/18 16:22 Dose: 30 ml Mometasone Furoate/Formoterol Fumar (Dulera 200-5 Mcg) 2 puff IH BIDRT [facility] Last Admin: 04/06/18 07:10 Dose: 2 puff Lumigan 0.01% (Ptom) 0 each EYEBOTH BEDTIME [facility] Last Admin: 04/05/18 20:25 Dose: 1 each Ondansetron HCl (Zofran) 4 mg IV Q4H PRN PRN Reason: Nausea/Vomiting Oxycodone HCl (Oxycodone) 5 mg PO Q4H PRN PRN Reason: Pain (moderate 4-6) Last Admin: 04/05/18 18:33 Dose: 5 mg Oxycodone HCl (Oxycontin) 20 mg PO Q8H [facility] Last Admin: 04/06/18 05:44 Dose: 20 mg Polyethylene Glycol (Miralax) 17 gm PO DAILY PRN PRN Reason: Constipation Senna/Docusate Sodium (Senna Plus) 1 tab PO BID PRN PRN Reason: Constipation Sodium Chloride (Saline Flush) 10 ml FLUSH ASDIRECTED PRN PRN Reason: Keep Vein Open Tiotropium [place] (Spiriva Handihaler) 18 mcg INH DAILY@0700 [facility] Last Admin: 04/06/18 07:10 Dose: 18 mcg Zolpidem Tartrate (Ambien) 5 mg PO BEDTIME PRN PRN Reason: Insomnia Last Admin: 04/04/18 00:44 Dose: 5 mg Discontinued Medications Acetaminophen (Tylenol Extra Strength) 1,000 mg PO ONETIME ONE Stop: 04/02/18 18:01 Last Admin: 04/02/18 18:06 Dose: 1,000 mg Albuterol/Ipratropium (Duoneb 3.0-0.5 Mg/3 Ml) 3 ml NEB ONETIME ONE Stop: 04/02/18 18:07 Last Admin: 04/02/18 18:15 Dose: 3 ml Albuterol/Ipratropium (Duoneb 3.0-0.5 Mg/3 Ml) 3 ml NEB QID [facility] Last Admin: 04/03/18 08:20 Dose: Not Given Enoxaparin Sodium (Lovenox) 40 mg SUBCUT DAILY [facility] Last Admin: 04/03/18 10:34 Dose: 40 mg Sodium Chloride (Normal Saline) 1,000 mls @ 500 mls/hr IV .BOLUS ONE Stop: 04/02/18 19:59 Last Admin: 04/02/18 18:07 Dose: 500 mls/hr Piperacillin Sod/Tazobactam (Sod 3.375 gm/ Sodium Chloride) 50 mls @ 100 mls/ hr IV Q6H [facility] Last Admin: 04/03/18 03:30 Dose: 100 mls/hr Azithromycin 500 mg/ Sodium (Chloride) 250 mls @ 250 mls/hr IV Q24H [facility] Last Admin: 04/02/18 22:28 Dose: 250 mls/hr Aztreonam 1 gm/ Sodium (Chloride) 100 mls @ 200 mls/hr IV Q8HR [facility] Last Admin: 04/02/18 23:41 Dose: Not Given Lactated Ringer's (Ringers, Lactated) 1,000 mls @ 500 mls/hr IV ASDIRECTED [facility] Stop: 04/03/18 00:58 Last Admin: 04/02/18 21:24 Dose: 500 mls/hr Lactated Ringer's (Ringers, Lactated) 1,000 mls @ 125 mls/hr IV ASDIRECTED [facility] Last Admin: 04/03/18 01:35 Dose: 125 mls/hr Aztreonam 1 gm/ Sodium (Chloride) 100 mls @ 200 mls/hr IV Q8HR [facility] Last Admin: 04/03/18 05:53 Dose: 200 mls/hr Azithromycin 500 mg/ Sodium (Chloride) 250 mls @ 250 mls/hr IV Q24H [facility] Last Admin: 04/04/18 20:55 Dose: 250 mls/hr Aztreonam/Dextrose 1 gm/ (Premix) 50 mls @ 100 mls/hr IV Q8HR [facility] Last Admin: 04/04/18 05:01 Dose: 100 mls/hr Piperacillin/Tazobactam/ (Dextrose 3.375 gm/ Premix) 50 mls @ 100 mls/hr IV Q6H [facility] Stop: 04/05/18 16:00 Last Admin: 04/05/18 14:25 Dose: 100 mls/hr Latanoprost (Xalatan 0.005% Ophth Soln) 0 ml EYEBOTH BEDTIME [facility] Last Admin: 04/02/18 23:08 Dose: Not Given Latanoprost (Xalatan 0.005% Ophth Soln) 0 ml EYEBOTH BEDTIME [facility] Last Admin: 04/02/18 22:08 Dose: 1 drop Latanoprost (Xalatan 0.005% Ophth Soln) 0 ml EYEBOTH BEDTIME [facility] Lorazepam (Ativan) 1 mg IVPUSH Q4H PRN PRN Reason: Anxiety Last Admin: 04/05/18 08:12 Dose: 1 mg Methylprednisolone Sodium Succinate (Solu-Medrol) 40 mg IVPUSH Q6H [facility] Last Admin: 04/03/18 03:30 Dose: 40 mg Methylprednisolone Sodium Succinate (Solu-Medrol) 40 mg IVPUSH Q6H [facility] Last Admin: 04/03/18 10:34 Dose: 40 mg Methylprednisolone Sodium Succinate (Solu-Medrol) 40 mg IVPUSH Q12H [facility] Last Admin: 04/04/18 11:03 Dose: Not Given Mometasone Furoate/Formoterol Fumar (Dulera 200-5 Mcg) 0 puff IH BID [facility] Last Admin: 04/02/18 21:37 Dose: 2 puff Oxycodone HCl (Oxycontin) 20 mg PO Q8H [facility] Last Admin: 04/03/18 05:56 Dose: Not Given Oxycodone HCl (Oxycontin) 20 mg PO ONETIME ONE Stop: 04/03/18 08:16 Last Admin: 04/03/18 08:15 Dose: 20 mg Potassium Chloride (Klor-Con M20) 40 meq PO ONETIME ONE Stop: 04/04/18 09:01 Last Admin: 04/04/18 09:39 Dose: 40 meq Sodium Chloride (Saline Flush) 10 ml FLUSH ASDIRECTED PRN PRN Reason: Keep Vein Open Last Admin: 04/02/18 18:07 Dose: 10 ml Warfarin Sodium (Coumadin Sliding Scale) 1 each PO DAILY [facility] Warfarin Sodium (Coumadin) 5 mg PO NOW ONE Stop: 04/02/18 21:16 Last Admin: 04/02/18 21:22 Dose: 5 mg Warfarin Sodium (Coumadin) 7.5 mg PO ONETIME ONE Stop: 04/03/18 10:01 Last Admin: 04/03/18 10:33 Dose: 7.5 mg - Exam Quality Assessment: Denies: Supplemental Oxygen General: Reports: Alert, Oriented, Cooperative, No Acute Distress Neck: Reports: Supple Lungs: Reports: Normal Respiratory Effort Cardiovascular: Reports: Regular Rate, Regular Rhythm GI/Abdominal Exam: No Distention Extremities: No Pedal Edema Psy/Mental Status: Reports: Alert, Normal Affect *Q Meaningful Use (DIS) - VTE *Q VTE Pharmacological Contraindications *Q: High INR Value
[2018-04-06] MEDS: oxyCODONE 5 MG Tab PO PRN (14:10)
== END 2018-04-06 15:10 | disposition home or self-care (01) | DRG 720 ==
LOC: JP.ED 17:02 → JP.MS 20:19
PROVIDERS: ADMIT Hospitalist; ATTEND Internal Medicine
DX: A41.9 Sepsis, unspecified organism (principal); J18.9 Pneumonia, unspecified organism; J96.91 Respiratory failure, unspecified with hypoxia; J44.0 Chronic obstructive pulmonary disease with (acute) lower respiratory infection; J44.1 Chronic obstructive pulmonary disease with (acute) exacerbation; G89.29 Other chronic pain; M54.9 Dorsalgia, unspecified; Z87.01 Personal history of pneumonia (recurrent); Z86.711 Personal history of pulmonary embolism; Z86.718 Personal history of other venous thrombosis and embolism; I25.2 Old myocardial infarction; Z79.01 Long term (current) use of anticoagulants; Z79.899 Other long term (current) drug therapy
CPT/HCPCS: 36415; 36600; 71045; 71045-26; 80048; 80053; 81001; 82803; 83605; 83735; 84132; 85025; 85027; 85610; 85730; 86140; 87040; 87070; 87086; 87205; 94640; 94640-76; 94664; 94762; 96360; 99285-25; A9270-GY; J0456; J1650; J2060; J2543; J2920; J3490; J7030; J7050; J7120; J7620; S0073

== ENCOUNTER 2019-02-16 14:23 | Emergency (ER) | payer BC ==
--- NOTE | 2019-02-16 15:02 | EDM.PDOC ---
ED HPI GENERAL MEDICAL PROBLEM - General Chief Complaint: General Stated Complaint: FELL HURT RIGHT SIDE UPPER BODY Time Seen by Provider: 02/16/19 14:50 Source of Information: Reports: Patient, Old Records, RN History Limitations: Reports: No Limitations - History of Present Illness INITIAL COMMENTS - FREE TEXT/NARRATIVE: 63 yo male fell today onto grass landing on his R side. Has pain with breathing , but no SOB more than usual. Drove himself to the ER after taking 2 Tylenol and a Percocet. Most of his pain is in the R lateral chest. Walked into the ER under his own power. Is on warfarin and his last INR was about 3 weeks ago at 4.3 and his warfarin dose was cut in half. 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, Other Medication(s) (percocet) - Related Data Allergies Allergy/AdvReac Type Severity Reaction Status Date / Time No Known Allergies Allergy Verified 04/02/18 17:08 Home Meds: Home Meds ALPRAZolam [Xanax] 3 - 5 tab PO ASDIRECTED PRN 04/02/18 [History] Bimatoprost [LUMIGAN 0.01% Ophth Soln] 1 drop EYEBOTH BEDTIME 04/02/18 [History] Citalopram [Citalopram HBr] 40 mg PO DAILY 04/02/18 [History] Fluticasone/Salmeterol [Advair 250-50 Diskus] 1 puff IN BID 04/02/18 [History] Furosemide [Lasix] 40 mg PO DAILY 04/02/18 [History] Tiotropium [Spiriva HandiHaler] 1 dose IN DAILY 04/02/18 [History] Zolpidem Tartrate [Ambien] 5 mg PO BEDTIME PRN 04/02/18 [History] amLODIPine [Norvasc] 5 mg PO DAILY 04/02/18 [History] oxyCODONE ER [OxyCONTIN] 20 mg PO Q8H 04/02/18 [History] Amoxicillin/Clavulanate K [Augmentin 875-125 MG] 1 tab PO BID #11 tablet [Rx] Warfarin [Coumadin] 5 mg PO DAILY 04/06/18 [History] Past Medical History Cardiovascular History: Reports: OR Respiratory History: Reports: COPD Musculoskeletal History: Reports: Back Pain, Chronic - Infectious Disease History Infectious Disease History: Reports: Hepatitis C Social & Family History - Tobacco Use Smoking Status *Q: Never Smoker - Caffeine Use Caffeine Use: Reports: Coffee, Energy Drinks - Recreational Drug Use Recreational Drug Use: No ED ROS GENERAL - Review of Systems Review Of Systems: See Below Constitutional: Reports: No Symptoms HEENT: Reports: No Symptoms Respiratory: Reports: No Symptoms Cardiovascular: Reports: No Symptoms Endocrine: Reports: No Symptoms GI/Abdominal: Reports: No Symptoms : Reports: No Symptoms Musculoskeletal: Reports: Shoulder Pain (mild R), Other (mild R hip pain, mostly R chest wall pain) Skin: Reports: No Symptoms Neurological: Reports: No Symptoms Psychiatric: Reports: No Symptoms ED EXAM, GENERAL - Physical Exam Exam: See Below Exam Limited By: No Limitations General Appearance: Alert, WD/WN, No Apparent Distress, Obese Eye Exam: Bilateral Eye: Normal Inspection Ears: Hearing Grossly Normal Ear Exam: Bilateral Ear: Auricle Normal Nose: Normal Inspection, No Blood Throat/Mouth: Normal Voice, No Airway Compromise Head: Atraumatic, Normocephalic Respiratory/Chest: No Respiratory Distress, Lungs Clear (breath sounds bilaterally slightly diminished.), Other (Ribs tender on R without crepitus). No: Respiratory Distress, Crackles, Rales, Rhonchi, Wheezing, Retractions, Splinting Cardiovascular: Regular Rate, Rhythm, No Edema GI/Abdominal: Soft, Non-Tender Extremities: Normal Inspection, Normal Range of Motion Neurological: Alert, Oriented, CN II-XII Intact, Normal Cognition, No Motor/ Sensory Deficits Psychiatric: Normal Affect, Normal Mood Skin Exam: Warm, Dry, Intact, Normal Color, No Rash Course - Vital Signs Last Recorded V/S: Last Vital Signs Temp 35.7 C 02/16/19 14:48 Pulse 102 H 02/16/19 14:48 Resp 27 H 02/16/19 14:48 BP 157/73 H 02/16/19 14:48 Pulse Ox 95 02/16/19 14:48 Orthostatic Blood Pressure [ 126/67 Standing] Orthostatic Blood Pressure [ 144/47 Sitting] Orthostatic Blood Pressure [ 159/63 Supine] - Orders/Labs/Meds Orders: Active Orders 24 hr Category Date Time Status Orthostatic Vital Signs [RC] ASDIRECTED Care 02/16/19 14:57 Active Chest 2V [CR] Stat Exams 02/16/19 14:56 Taken Labs: Laboratory Tests 02/16/19 Range/Units 14:56 PT 16.2 H (9.5-12.0) sec INR 1.51 H (0.80-1.20) - Radiology Interpretation Free Text/Narrative:: CXR- Departure - Departure Time of Disposition: 15:33 Disposition: Home, Self-Care 01 Condition: Fair Clinical Impression: Rib pain on right side, Subtherapeutic international normalized ratio (INR) - Discharge Information *PRESCRIPTION DRUG MONITORING PROGRAM REVIEWED*: No *COPY OF PRESCRIPTION DRUG MONITORING REPORT IN PATIENT SIDRA: No Instructions: Chest Wall Pain, [id number] Referrals: PCP,None [Primary Care Provider] - Forms: ED Department Discharge Additional Instructions: Drink ample fluids today and tomorrow. Let your provider know that your INR today was low at 1.51. Use acetaminophen 1000 mg every 6 hrs as needed for pain relief. See your doctor as needed. - My Orders Last 24 Hours: My Active Orders 02/16/19 14:56 Chest 2V [CR] Stat 02/16/19 14:57 Orthostatic Vital Signs [RC] ASDIRECTED - Assessment/Plan Last 24 Hours: My Active Orders 02/16/19 14:56 Chest 2V [CR] Stat 02/16/19 14:57 Orthostatic Vital Signs [RC] ASDIRECTED
--- NOTE | 2019-02-16 15:42 | CR ---
CHEST: 2 view CLINICAL HISTORY:Right rib pain after fall COMPARISON:April 09, 2018 FINDINGS: Heart is enlarged. Pulmonary vascular is normal. No infiltrate effusion or pneumothorax is seen. There are atherosclerotic changes in the aorta. Impression: Mild cardiomegaly No acute cardiac pulmonary process No definite rib fracture seen on limited study
== END 2019-02-16 15:47 | disposition home or self-care (01) ==
LOC: JP.ED 14:23
DX: R07.81 Pleurodynia (principal); R79.1 Abnormal coagulation profile; J44.9 Chronic obstructive pulmonary disease, unspecified; I25.2 Old myocardial infarction; Z79.899 Other long term (current) drug therapy
CPT/HCPCS: 36415; 71046; 71046-26; 85610; 99285-25